=== PATIENT | male | born 1965 | race Caucasian/White ===

== ENCOUNTER 2017-01-19 13:59 | Emergency (ER) | payer MEDICARE, MEDICAID ==
[~2017-01-19] VITALS: Ht 182.9 cm; Wt 78.9 kg
[~2017-01-19 13:59] MED LIST: BACTRIM DS 8001 TAB PO; BACTROBAN2% TP; ITRACONAZOLE100 MG PO; K-DUR 2020 MEQ PO; MAG-OX 400MG T400 MG PO; MELATONIN1 MG PO; MICONAZOLE45 GM/TUB1 TP; NOMEDS XX; NORCO 325 MG-51 TAB PO; PANTOPRAZOLE SO40 MG PO; RANITIDINE300 MG PO; TEMAZEPAM15 M1 PO; TRAZADONE HYDR100 MG PO
--- NOTE | 2017-01-19 14:23 | Urgent Treatment Center Report ---
History of Present Issue Date/Time Seen by Provider 01/19/17 1416 Visit Reason Pt arrived:Walked Presenting Problem:c/o sore throat, productive cough, bilateral ear pain. states symptoms have been going on for 2 weeks. Location if Accident: Onset of symptoms date/time:/ or onset unknown for:MEDICAL HX UNKNOWN Have you (or family members/close friends) recently traveled outside the [place]? N If Yes, where/when: Have you had exposure to infectious disease within the past month? TB? Other? Specify: Patient states that he has been sick for almost 2 weeks states that the doctor told him he may have strep gave him some medication but still has not improved that it has actually got worse. States that his throat is sore and it feels like it is backing up into his ears and his nose is stopped up Source patient, family ALLERGIES Coded Allergies: codeine (01/19/17) Home Medications Reported Medications Temazepam 15 MG PO QHS #30 Trazodone Hcl (Trazodone HCl) 50 MG PO QHSP PRN SLEEP #30 History Medical History General CAD? No Angina: No [place]: No Hypertension? No Hyperlipidemia? No CHF? No COPD? No Asthma? No Anemia? No Hernia? No Thyroid Problems? No Hypothyroidism? No CVA? No Seizures? No Diabetes? No UTI? No Stones? No GB Disease: No Nephritic Syndrome? No Asplenia? No Hepatitis? Yes Cataracts? No Glaucoma? No MRSA? Yes TB? No Cancer? No More? Yes Additional hx: HISTOPLASMOSIS, sleep disorder Immunization HX DT/Tetanus Unknown Surgical Hx Previous Surgery?Y thumb surgery Social History Smoking Hx Smoker: Current Every Day Smoker Tobacco: Yes Type Cigarettes Packs/day < 1 Pack Alcohol Alcohol: No Review of Systems All Other Systems Reviewed and Negative ENT ear pain, nose congestion, throat pain, throat swelling. Respiratory cough Physical Exam Vital Signs Vital Signs Date Time Temp Pulse Resp B/P Pulse O2 O2 Flow FiO2 Ox Delivery Rate 01/19 1408 98.4 64 24 154/114 98 General Appearance normal appearance Ear, Nose, Throat tonsillar exudate, tonsillar swelling, Throat red, irritated, Left ear red scratch just inside opening, TM visiable good landmarks Respiratory Status Yes: trachea midline, chest symmetrical, non tender chest. No: respiratory distress. Cardiovascular normal exam, no peripheral edema, no gallop, no JVD Neurologic alert, normal exam, no motor/sensory deficits Medical Decision Making LABS/Meds/Orders Pt receiving controlled substance in ED? No Results/Orders Orders Procedure Date/time Status UTC STREP SCREEN 01/19 1420 Active CHEST(2 VIEWS-NOT PORTABLE) 01/19 1417 Active XRAY/CT/US XRAY/CT/US XRAY chest XR interpretation by reviewed by me Xray Results no infiltrates Departure Departure Time of Disposition 1436 Disposition DC Home or Self Care(routine) Clinical Impression Primary Impression: Upper respiratory infection Qualifiers: URI type: unspecified URI Qualified Code: J06.9 - Acute upper respiratory infection, unspecified Condition STABLE Patient Instructions DI for Cough -- Adult Additional Instructions Warm salt water gargles for throat irritation Use humidifer to moisten air Follow up family doctor Over the counter Motrin or Tylenolol for fever or pain Discharge Counseling Counseled pt/family regarding diagnosis, test results, home care, follow up needs Prescriptions Current Visit Scripts Azithromycin (Zithromycin (Z-ANJU) 250MG Tab) 250 MG PO DAILY #6 TAB TAKE TWO (2) TABLETS ON DAY 1, THEN ONE (1) TABLET DAY #2 THRU #5 Prednisone (Prednisone 20MG) 20 MG PO BID #10 TAB at 1441
[2017-01-19] MEDS ORDERED: PREDNISONE 20MG20 MG PO (14:38)
[2017-01-19] MEDS ORDERED: ZITHROMAX Z PA250 MG PO (14:38)
[2017-01-19 15:06] VITALS: BP 154/114
--- NOTE | 2017-01-19 16:18 | RADIOLOGY REPORT PS360 ---
CHEST(2 VIEWS-NOT PORTABLE) INDICATION: Productive cough COMPARISON: None FINDINGS: The lung gutierrez are well expanded and appear clear of infiltrate. The cardiomediastinal silhouette and vascularity are normal. The costophrenic angles are clear. The bony thorax is normal. IMPRESSION: Normal chest.
== END 2017-01-19 15:07 | disposition home or self-care (01) ==
LOC: UTC 13:59
DX: J06.9 Acute upper respiratory infection, unspecified (principal)

== ENCOUNTER 2017-08-20 23:49 | Emergency (ER) | payer MEDICARE, MEDICAID ==
[~2017-08-20] VITALS: Ht 182.9 cm; Wt 48.5 kg
[~2017-08-20 23:49] MED LIST changes: +PREDNISONE 20MG20 MG PO; +ZITHROMAX Z PA250 MG PO
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
[2017-08-21 00:21] LABS: LYMPH # 1.3 K/mm3 (0.7-4.5); LYMPH % 18.9 % (10-50)
[2017-08-21 00:32] LABS: HEMOGLOBIN 15.2 g/dL (14.1-18.0)
[2017-08-21 00:36] VITALS: BP 126/96
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
== END 2017-08-21 00:38 | disposition still patient (30) ==
LOC: ER 23:49
PROVIDERS: Emergency Medicine
DX: S39.81XA Other specified injuries of abdomen, initial encounter (principal); V89.2XXA Person injured in unspecified motor-vehicle accident, traffic, initial encounter; Z72.0 Tobacco use; R73.09 Other abnormal glucose; S00.411A Abrasion of right ear, initial encounter; Z88.6 Allergy status to analgesic agent

== ENCOUNTER 2017-09-16 14:45 | Emergency (ER) | payer MEDICARE, MEDICAID ==
[~2017-09-16] VITALS: Ht 182.9 cm; Wt 81.6 kg
[2017-09-16] MEDS ORDERED: GABAPENTIN 600600 MG PO (14:59)
[2017-09-16] MEDS ORDERED: OXYCODONE 5MG TA5 MG PO (15:00)
--- OUTSIDE RECORDS SUMMARY | 2017-09-16 15:08 | External Medical Summary Rpt | CCD ---
Author Author , [facility] Organization [facility] Address Unknown Phone [email or web address] Team Providers Care Joint Yarner Name Role Phone ADEANGELA FRANCISCO J, Unavailable Unavailable ADEGBOYEGA FRANCISCO J ALHAJERI, ALHAJERI Unavailable Unavailable AOUAD, AOUAD Unavailable Unavailable ARNOLD, ARNOLD Unavailable Unavailable ARNOLD, ARNOLD Unavailable Unavailable ARNOLD JUAN LUIS, ARNOLD Unavailable Unavailable JUAN LUIS ARNOLD JUAN LUIS, ARNOLD Unavailable Unavailable JUAN LUIS AUXIER, AUXIER Unavailable Unavailable AYOOB, AYOOB Unavailable Unavailable SHIPMAN, SHIPMAN Unavailable Unavailable SANABRIA NIDA, SANABRIA Unavailable Unavailable NIDA [facility] Unavailable Unavailable SERVICE, [facility]available Unavailable SERVICE, [facility] FRANK KIN IGN, Unavailable Unavailable [facility]ANK [facility] IGN CHESTNUT, CHESTNUT Unavailable Unavailable CALI, CALI Unavailable Unavailable [facility], Unavailable Unavailable [facility] Unavailable Unavailable CLINIC, PLL, [facility] SAM, SAM Unavailable Unavailable COOK, COOK Unavailable Unavailable FRDEA, FREDA Unavailable Unavailable FREDA ADR, FREDA Unavailable Unavailable ADR FORTINO DECALVO Unavailable Unavailable MAR, FORTINO DECALVO MAR DELL CAR, DELL CAR Unavailable Unavailable [facility]available [facility]available [facility] DISANTIS GLYNN, Unavailable Unavailable DISANTIS GLYNN RAYRAY, RAYRAY Unavailable Unavailable ECKERLINE JR GERALDINE, Unavailable Unavailable ECKERLINE JR GERALDINE FAGBEMI, FAGBEMI Unavailable Unavailable JACKELIN SHE, JACKELIN Unavailable Unavailable SHE [facility], Unavailable Unavailable [facility] Unavailable Unavailable HOSPITAL, [facility] GHALI, GHALI Unavailable Unavailable DUTTA JUAN LUIS, DUTTA JUAN LUIS Unavailable Unavailable [facility] PHI, TEMPLETON Unavailable Unavailable PHI HAGENSCHNEIDER JANEEN, Unavailable Unavailable HAGENSCHCARLY JANEEN [facility], [facility] CATALINO, CATALINO Unavailable Unavailable LISETTE MASKEY, LISETTE Unavailable Unavailable MASKEY PILLO TAU, PILLO Unavailable Unavailable TAU ROXANNE III GERALDINE, Unavailable Unavailable ROXANNE III GERALDINE [facility] Unavailable Unavailable [facility], [facility] LINUS ROBBY, LINUS Unavailable Unavailable ROBBY ANJEL SUBHASH, ANJEL SUBHASH Unavailable Unavailable JULIO CHI, [facility] Unavailable [facility] CITLALY, SHANIADY Unavailable Unavailable [facility] Un[facility] FELICIANO ART, FELICIANO Unavailable Unavailable ART SARAY VIOLETTE, SARAY Unavailable Unavailable VIOLETTE SARAY VIOLETTE, SARAY Unavailable Unavailable VIOLETTE SARAY, JOHN, Unavailable Unavailable SARAY, JOHN LUKE CON, LUKE CON Unavailable Unavailable [facility] Unavailable Unavailable [facility], [facility] CHAZ WARE Unavailable Unavailable [facility] HERNANDEZ-LÓPEZ GALINDO, Unavailable Unavailable HERNANDEZ-LÓPEZ GALINDO MUSIC SORAIDA, MUSIC SORAIDA Unavailable Unavailable FERNANDEZ, FERNANDEZ Unavailable Unavailable [facility], Unavailable Unavailable [facility] DELVIS, DELVIS Unavailable Unavailable EBONY VIOLETTE, EBONY VIOLETTE Unavailable Unavailable [facility], Unavailable Unavailable [facility] Unavailable Unavailable EMS, [facility] Unavailable Unavailable EMS, [facility] RADAMES GALINDO, RADAMES Unavailable Unavailable GALINDO [facility], Unavailable Unavailable [facility] Unavailable Unavailable [facility]AT, [facility] Unavailable Unavailable LLC, [facility] Unavailable Unavailable LLC, [facility] RASLAU FLA, RASLAU Unavailable Unavailable FLA MEJÍA LG, Unavailable Unavailable MEJÍA LG OBEY ELAINA, OBEY Unavailable Unavailable ELAINA ROMOND PAOLA, ROMOND Unavailable Unavailable PAOLA [facility]ICAL, ROSS Unavailable Unavailable [facility]ICAL ROSS SURGICAL, ROSS Unavailable Unavailable SURG[facility] SHANTELL IRA, SHANTELL IRA Unavailable Unavailable SCALF, SCALF Unavailable Unavailable SCHLEENBAKER RAN, Unavailable Unavailable SCHLEENBAKER RAN GOMEZ HEM, GOMEZ HEM Unavailable Unavailable SHASHY, SHASHY Unavailable Un[facility] Unavailable Unavailable [facility]ICIAN SERVI, [facility] Unavailable Unavailable KETAN, [facility] DEJESUS GALINDO, DEJESUS GALINDO Unavailable Unavailable МАРИНА JEANNINE, Unavailable Unavailable МАРИНА JEANNINE SWINEY, SWINEY Unavailable Unavailable SONALI MARY, SONALI Unavailable Unavailable MARY SORIA, SORIA Unavailable Unavailable DWYER, DWYER Unavailable Unavailable LES JAM, LES JAM Unavailable Unavailable [facility] Un[facility], [facility], Unavailable Unavailable [facility] WELLS, WELLS Unavailable Unavailable WELLS, WELLS Unavailable Unavailable [facility], WEST Unavailable Unavailable [facility] MARY BETH, MARY BETH Unavailable Unavailable MARY BETH NIDA, MARY BETH Unavailable Unavailable NIDA ZAGUROVSKAYA MAR, Unavailable Unavailable ZAGUROVSKAYA MAR RIVERA, RIVERA Unavailable Unavailable Purpose Continuity of Care Document - 08-02-2008 through 2016 Problems Code Diagnosis DOS Provider Status J189 PNEUMONIA 08-04-2017 [facility] UNSPECIFIED SURGICAL ORGANISM M545 LOW BACK 06-11-2017 [facility] Z6825 BODY MASS 06-11-2017 [facility] INDEX BMI FAMILY 25.0-25.9 CLINIC, PLL ADULT B1920 UNS VIRAL 05-21-2017 [facility] WITHOUT INC HEPATIC COMA B399 HISTOPLASMO 05-21-2017 [place] [facility] UNSPECIFIED INC I10 ESSENTIAL 05-20-2017 [facility] J449 CHRONIC 05-20-2017 [facility] DISEASE UNS K219 GASTRO-ESOP 05-20-2017 [facility] REFLUX [facility] WITHOUT ESOPHAGITIS R070 PAIN IN 05-20-2017 [facility] N EMERGENCY PHYS R1310 DYSPHAGIA 05-20-2017 [facility] Z880 ALLERGY 05-20-2017 [facility] Z885 ALLERGY 05-20-2017 [facility] AGENT STATUS R498 OTHER VOICE 05-13-2017 [facility] RESONANCE CLINIC, PLL DISORDERS Z6820 BODY MASS 05-13-2017 [facility] IN[facility] BMI FAMILY 20.0-20.9 CLINIC, PLL ADULT A419 SEPSIS 04-25-2017 [facility] ORGANISM [facility] B182 CHRONIC 04-25-2017 [facility] V[facility] HEPATITIS C [facility] B393 DISSEMINATE 04-25-2017 [facility] D [facility] HISTOPLASMO [facility] SIS CAPSULATI E46 UNSPECIFIED 04-25-2017 [facility] PROTEIN-NANCI [facility] ORIE MALNUTRITIO N J387 OTHER 04-25-2017 [facility] DISEASES OF SERV LARYNX FOUNDATION Z4659 ENCOUNTER 04-22-2017 [facility] ADJUST OTH [facility] GI APPLIANCE & DEVICE Z934 OTH 04-22-2017 [facility] ARTFICIAL SERV OPENINGS [facility] GASTROINTES T TRACT STATUS G49882 DECREASED 04-21-2017 [facility] WHITE BLOOD SERV CELL COUNT [facility]OUNDATION UNSPECIFIED E440 MODERATE 04-21-2017 [facility] PROTEIN-NANCI SERV ORIE FOUNDATION MALNUTRITIO N E876 HYPOKALEMIA 04-21-2017 [facility] I358 OTHER 04-21-2017 [facility] NONRHEUMATI SERV C AORTIC FOUNDATION VALVE DISORDERS R1313 DYSPHAGIA 04-21-2017 [facility] PHARYNGEAL [facility] PHASE [facility] R499 UNSPECIFIED 04-21-2017 [facility] VOICE [facility] RESONANCE [facility] DISORDER R509 FEVER 04-21-2017 [facility] X02461W FOOD IN 04-21-2017 [facility] PHARYNX [facility] CAUSING [facility] ASPHYXIATIO N INIT ENC Z720 TOBACCO USE 04-21-2017 [facility] G039 MENINGITIS 04-18-2017 [facility]PEC[facility] M792 NEURALGIA 04-16-2017 [facility] NEURITIS [facility] UNSPECIFIED E860 DEHYDRATION 04-11-2017 [facility] J384 EDEMA OF 04-11-2017 [facility] LARYNX SERV [facility] R0602 SHORTNESS 04-11-2017 [facility] OF BREATH SERV [facility] R1319 OTHER 04-11-2017 [facility] DYSPHAGIA SERV [facility] R918 OTHER 04-11-2017 [facility] NONSPECIFIC SERV ABNORMAL [facility] FINDING OF LUNG FIELD Z8619 PERSONAL 04-11-2017 [facility] HISTORY [facility]TH SERV INFECTIOUS FOUNDATION & PARASITIC DZ J069 ACUTE UPPER 04-10-2017 [facility] RESPIRATORY CLINIC, PLL INFECTION UNSPECIFIED D3709 NEOPLASM 04-08-2017 [facility] BHV OTH PRACTIC SPEC SITES ORAL CAV D380 NEOPLASM OF 04-08-2017 [facility] BEHAVIOR OF PRACTIC LARYNX H9201 OTALGIA 04-08-2017 [place] RIGHT EAR [facility] J342 DEVIATED 04-08-2017 [facility] M1990 UNSPECIFIED 04-08-2017 [facility] TIS UNSPECIFIED SITE R12 HEARTBURN 04-08-2017 [facility] J0431 SUPRAGLOTTI 04-06-2017 [facility] TIS N EMERGENCY UNSPECIFIED PHYS WITH OBSTRUCTION R0600 DYSPNEA 04-06-2017 [facility] M542 CERVICALGIA 04-03-2017 [facility] R000 TACHYCARDIA 04-03-2017 [facility] FAMILY UNSPECIFIED CLINIC, PLL R030 ELEVATED 04-03-2017 [facility] BLOOD-PRESS FAMILY URE READING CLINIC, PLL WITHOUT DX HTN R05 COUGH 04-03-2017 [facility] J383 OTHER 03-04-2017 [facility] DISEASES OF FAMILY VOCAL CLINIC, PLL CORDS I444 LEFT 02-26-2017 [facility] FASCICULAR [facility] BLOCK R9431 ABNORMAL 02-26-2017 [facility] ELECTROCARD SERV IOGRAM [facility]ATION R490 DYSPHONIA 02-21-2017 [facility] B379 CANDIDIASIS 02-04-2017 [facility] FAMILY UNSPECIFIED CLINIC, PLL R221 LOCALIZED 02-04-2017 [facility] SWELLING FAMILY MASS AND CLINIC, PLL LUMP NECK B370 CANDIDAL 01-31-2017 [facility] STOMATITIS N EMERGENCY PHYS I959 HYPOTENSION 01-31-2017 [facility] N EMERGENCY UNSPECIFIED PHYS J9811 ATELECTASIS 01-27-2017 [facility] J040 ACUTE 01-06-2017 [facility] LARYNGITIS M150 PRIMARY 01-06-2017 [facility] GENERALIZED OSTEOARTHRI TIS R531 WEAKNESS 01-06-2017 [facility] L2089 OTHER 12-10-2016 [facility] ATOPIC FAMILY DERMATITIS CLINIC, PLL H6500 ACUTE 09-11-2016 [facility] SEROUS FAMILY OTITIS CLINIC, PLL MEDIA UNSPECIFIED EAR B1710 ACUTE 08-28-2016 [facility] HEPATITIS C FAMILY WITHOUT CLINIC, PLL HEPATIC COMA R7301 IMPAIRED 08-28-2016 [facility] GLUCOSE CLINIC, PLL R749 ABNORMAL 08-22-2016 [facility] [employer] [facility] LEVEL UNSPECIFIED R945 ABNORMAL 08-22-2016 [facility] FUNCTION STUDIES Z0000 ENCOUNTER 08-22-2016 [facility] GEN ADULT FAMILY MED EXAM CLINIC, PLL W/O ABNORMAL FIND G4700 INSOMNIA 08-08-2016 [facility] JUAN LUIS UNSPECIFIED G894 CHRONIC 08-08-2016 [facility] JUAN LUIS PAIN SYNDROME H6992 UNSPECIFIED 06-13-2016 [facility] EUSTACHIAN N EMERGENCY TUBE SERVI DISORDER LEFT EAR H9202 OTALGIA 06-13-2016 [facility] LEFT EAR N EMERGENCY SERVI R51 HEADACHE 05-11-2016 [facility] R569 UNSPECIFIED 05-11-2016 [facility] P06837 PAIN IN 10-13-2015 [place] [facility] M549 DORSALGIA 10-13-2015 [place] [facility] W54142 PAIN IN 10-13-2015 [place] [facility] I96 GANGRENE 10-02-2015 [facility] NOT SERV ELSEWHERE FOUNDATION CLASSIFIED R069 UNSPECIFIED 10-02-2015 [facility] ABNORMALITI [facility] ES OF BREATHING M72281Y LACERATION 10-02-2015 [facility] W/O FB RT SERV THUMB W/O FOUNDATION DAMAGE NAIL INIT T07391 ACQUIRED 10-02-2015 [facility] ABSENCE OF SERV LEFT THUMB FOUNDATION M19785 CELLULITIS 10-01-2015 [facility] OF LEFT SERV UPPER LIMB FOUNDATION L0390 CELLULITIS 10-01-2015 [facility]PEC[facility] SERVICE A17581 PAIN IN 10-01-2015 [place] [facility] Q06484H OPEN BITE 10-01-2015 [facility] MEDICAL THUMB W/O IMAGING ASS DAMAGE NAIL INITIAL 98435 ESOPHAGEAL 08-24-2015 [facility] 17034 INSOMNIA 08-24-2015 [facility] 7871 HEARTBURN 08-24-2015 [facility] 92754 UNSPECIFIED 08-17-2015 [facility] VIRAL [facility] HEPATITIS C [facility]OUNDATION W/O HEPATIC COMA 84086 HISTOPLASMA 08-17-2015 [facility] CAPSULATUM SERV WITHOUT [facility]OUNDATION MENTION MANIFEST 7099 UNSPECIFIED 08-17-2015 [facility] DISORDER [facility] OF [facility]ATION SKIN&SUBCUT ANEOUS TISSUE 87980 DYSPHAGIA 08-17-2015 [facility] UNSPECIF[facility] SERV [facility] 7904 NONSPEC 08-17-2015 [facility] ELEV[facility] OF LEVELS FOUNDATION OF TRANSAMINAS E/LDH 46274 UNSPEC 08-14-2015 [facility] HISTOPLASMO SERV SIS WITHOUT FOUNDATION MENTION MANIFEST 2639 UNSPECIFIED 08-14-2015 [facility] PROTEIN-NANCI [facility]OUNDATION ORIE MALNUTRITIO N 2768 HYPOPOTASSE 08-14-2015 [facility] AILYN [facility] 33598 ENCEPHALOPA 08-14-2015 [facility] THY, SERV UNSPECIFIED FOUNDATION 74944 OTHER 08-12-2015 [facility] ALTERATION [place] [address] DYSPHAGIA 08-12-2015 [facility] OROPHARYNGE N PHYSICIAN AL PHASE SERVI 4371 OTH 08-11-2015 [facility] GENERALIZED SERV ISCHEMIC FOUNDATION CEREBROVASC ULAR DISEASE V1209 PERSONAL HX 08-11-2015 [facility] INFECTIOUS& FOUNDATION PARASITIC DISEASE 84115 OTHER 08-10-2015 [facility] PNEUMOTHORA SERV X FOUNDATION V5882 ENCOUNTER 08-10-2015 [facility] FITTING&ADJ SERV [facility] NON-VASCULA R CATHETER NEC 5119 UNSPECIFIED 08-08-2015 [facility] PLEURAL [facility] EFFUSION [facility] 9331 FOREIGN 08-08-2015 [facility] B[facility] IN SERV LARYNX FOUNDATION E915 FOREIGN 08-08-2015 [facility] ACCIDENTALL [facility] Y ENTERING OTHER ORIFICE 27225 OTHER 08-07-2015 [facility] ENCEPHALOPA SERV THY FOUNDATION 89261 NONSPECIFIC 08-07-2015 [facility] ABNORMAL SERV ELECTROCARD FOUNDATION IOGRAM 78647 SOLITARY 08-02-2015 [facility] PULMONARY SERV NODULE FOUNDATION 486 PNEUMONIA, 08-01-2015 [facility] ORGANISM [facility] UNSPECIFIED FOUNDATION 72711 UNSPECIFIED 08-01-2015 [facility]OCK [facility] 31293 MECH COMP 07-28-2015 [facility] DUE OTH SERV IMPLANT&INT FOUNDATION ERNAL DEVICE NEC 48304 PRIMARY 07-27-2015 [facility] SPONTANEOUS SERV [facility] PNEUMOTHORA X 1124 CANDIDIASIS 07-26-2015 [facility] OF LUNG SERV FOUNDATION 2875 UNSPECIFIED 07-26-2015 [facility] THROMBOCYTO F[facility] PENIA 45899 LEUKOCYTOPE 07-26-2015 [facility] MILA SERV UNSPECIFIED FOUNDATION 95709 OTHER 07-26-2015 [facility] SPECIFIED SERV CARDIAC FOUNDATION DYSRHYTHMIA S 34397 CALCU 07-26-2015 [facility] GALLBLADD SERV W/O MENTION FOUNDATION CHOLECYST/O BST 46389 SEPSIS 07-26-2015 [facility] V5881 FITTING AND 07-26-2015 [facility] ADJUST[facility] SERV OF FOUNDATION VASCULAR CATHETER 0389 UNSPECIFIED 07-25-2015 [facility] 1179 OTHER AND 07-25-2015 [facility] MYCOSES 10893 OTHER 07-25-2015 [facility] A 53073 ACUTE 07-25-2015 [facility] FAILURE 56730 OTHER 07-25-2015 [facility] DISEASES OF SERV LUNG NOT FOUNDATION ELSEWHERE CLASSIFIED 79060 FEVER 07-25-2015 [facility] UNSPECIFIED SERV FOUNDATION 06447 LOSS OF 07-25-2015 [facility] WEIGHT [facility] 68614 SEPTIC 07-25-2015 [facility] 7856 ENLARGEMENT 07-25-2015 [facility] OF LYMPH SERV NODES FOUNDATION 7862 COUGH 07-25-2015 [facility] 21827 OTHER 07-25-2015 [facility] NONSPECIFIC SERV ABNORMAL FOUNDATION FINDING OF LUNG FIELD 23390 SEVERE 07-25-2015 [facility] SEPSIS SERV [facility] 6961 OTHER 07-12-2015 [facility] PSORIASIS N PHYSICIAN AND SIMILAR SERVI DISORDERS 46053 CHRONIC 07-10-2015 [facility] WITHOUT MENTION HEPATIC COMA 01267 SHORTNESS 07-10-2015 [facility] 33297 WHEEZING 07-10-2015 [facility] 6929 CONTACT 06-08-2015 D[facility] DERMATITIS& OTHER CONSULTANTS ECZEMA DUE PSC UNSPEC CAUSE 6989 UNSPECIFIED 06-08-2015 [facility] DISORDER INC 7905 OTHER 06-08-2015 [facility] NONSPECIFIC [facility] ABNORMAL INC SERUM ENZYME LEVELS 6823 CELLULITIS 05-30-2015 [facility] AND ABSCESS [facility] HOS[facility] OF UPPER INC ARM AND FOREARM 9194 OTH MX&UNS 05-30-2015 DERMAT[facility] SITE INSECT BITE CONSULTANTS NONVENOMOUS PSC W/O INF V5869 LONG-TERM 05-30-2015 [facility] (CURRENT) [facility] USE OF INC OTHER MEDICATIONS 41756 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 [facility] VIOLETTE CHRONIC BRONCHITIS WITHOUT EXACERBAT 7821 RASH AND 03-08-2014 [facility] VIOLETTE OTHER NONSPECIFIC SKIN ERUPTION 55488 OTHER CHEST 08-01-2011 [facility] VIO[facility] PAIN 9925 HEAT 08-01-2011 [facility] V[facility] EXHAUSTION, UNSPECIFIED E8499 UNSPECIFIED 08-01-[address] OF OCCURRENCE E9000 ACCIDENT 08-01-2011 [facility] VIOLETT[facility] DUE EXCESSIVE HEAT WEATHER CONDITIONS 12377 DEHYDRATION 07-31-2011 [facility] HOSPITAL 65196 PEPTC ULCR 07-31-2011 [facility] UNS HOSPITAL ACUT/CHRN W/O HEMOR PERF/OBST 7820 DISTURBANCE 07-31-2011 [facility] SENSATION 80444 CHEST PAIN 07-31-2011 [facility] 32313 ABDOMINAL 07-31-2011 [facility] PAIN, HOSPITAL EPIGASTRIC 3688 OTHER 08-02-2008 [facility] SPECIFIED HOSPITAL VISUAL DISTURBANCE S 5258 OTHER SPEC 08-02-2008 [facility] DISORDERS HOSPITAL TEETH&SUPPO RTING STRUCTURES 5259 UNSPECIFIED 08-02-2008 [facility] DISORDER HOSPITAL TEETH&SUPPO RTING STRUCTURES 8830 OPEN WOUND 08-02-2008 [facility] WITHOUT MENTION COMPLICATIO N 920 CONTUSION 08-02-2008 [facility] SCALP AND NECK EXCEPT EYE 9221 CONTUSION 08-02-2008 [facility] WALL Allergies, Adverse Reactions, Alerts Clinical Alert Notifications Alert Member has >/= 3 hosp admit & >/= 1 ED visit in 365 days Results Labs Lab Lab Date Result Refere Interp Status Commen Order Detail nces retati t Range on Lipase SerPl-cCnc (08-21-2017 01:51) Lipase 37 U/L 19-63 complet SerPl-c 017 ed Cnc 01:51 Lactate Bld-sCnc (08-21-2017 01:51) Lactate 2.1 complet 017 mmol/L ed Bld-sCn 01:51 c Phosphate SerPl-mCnc (04-23-2017 05:40) Phospha 04-23- 3.2 2.5-4.5 complet te 017 mg/dL ed SerPl-m 05:40 Cnc Phosphate SerPl-mCnc (04-22-2017 12:11) Phospha 04-22-2 2.6 2.5-4.5 complet te 017 mg/dL ed SerPl-m 12:11 Cnc Magnesium SerPl-mCnc (04-22-2017 12:11) Magnesi 04-22-2 2.0 1.9-2.4 complet um 017 mg/dL ed SerPl-m 12:11 Cnc Phosphate SerPl-mCnc (04-21-2017 03:52) Phospha 04-21-2 3.8 2.5-4.5 complet te 017 mg/dL ed SerPl-m 03:52 Cnc Magnesium SerPl-mCnc (04-21-2017 03:52) Magnesi 04-21-2 1.6 1.9-2.4 complet um 017 mg/dL ed SerPl-m 03:52 Cnc Phosphate SerPl-mCnc (04-20-2017 06:18) Phospha 04-20-2 2.9 2.5-4.5 complet te 017 mg/dL ed SerPl-m 06:18 Cnc Magnesium SerPl-mCnc (04-20-2017 06:18) Magnesi 04-20-2 2.0 1.9-2.4 complet um 017 mg/dL ed SerPl-m 06:18 Cnc Bacteria CSF Cult (04-18-2017 09:59) Bacteri [id number] complet a XXX 017 06 No ed Anaerob 09:59 growth e+Aerob (qualif e Cult ier value) SCT NG4 NO GROWTH DAY 4. L CC XXX NOTAP complet VC-aCnc 017 NOT ed 09:59 APPLICA BLE L Fungus Tiss Cult (04-18-2017 09:59) Bacteri 04-18- [id number] complet a XXX 017 03 ed Anaerob 09:59 sample: e+Aerob fungus e Cult not isolate d (findin g) SCT NF21 NO FUNGAL GROWTH AT 3 WEEKS L Bacteria XXX Anaerobe+Aerobe Cult (04-18-2017 04:18) Bacteri [id number] complet a XXX 017 06 No ed Anaerob 04:18 growth e+Aerob (qualif e Cult ier value) SCT NGB5 NO GROWTH DAY 4. L Vancomycin Trough SerPl-mCnc (04-15-2017 12:30) Vancomy 13.0 10-20 complet makeda 017 ug/mL ed Trough 12:30 SerPl-m Cnc Vancomycin Trough SerPl-mCnc (04-13-2017 13:20) Vancomy 8.4 10-20 complet makeda 017 ug/mL ed Trough 13:20 SerPl-m Cnc Phosphate SerPl-mCnc (04-12-2017 04:02) Phospha 3.6 2.5-4.5 complet te 017 mg/dL ed SerPl-m 04:02 Cnc Magnesium SerPl-mCnc (04-12-2017 04:02) Magnesi 2.1 1.9-2.4 complet um 017 mg/dL ed SerPl-m 04:02 Cnc HCV Ab SerPl Ql EIA (04-11-2017 18:46) HCV Ab POS complet SerPl 017 POSITIV ed Ql EIA 18:46 E L Bacteria XXX Anaerobe+Aerobe Cult (04-11-2017 15:16) Bacteri [id number] complet a XXX 017 06 No ed Anaerob 15:16 growth e+Aerob (qualif e Cult ier value) SCT NGB4 NO GROWTH DAY 4. L Phosphate SerPl-mCnc (04-11-2017 12:25) Phospha 3.5 2.5-4.5 complet te 017 mg/dL ed SerPl-m 12:25 Cnc Magnesium SerPl-mCnc (04-11-2017 12:25) Magnesi 1.9 1.9-2.4 complet um 017 mg/dL ed SerPl-m 12:25 Cnc Lactate Bld-sCnc (04-11-2017 12:25) Lactate 1.0 complet 017 mmol/L ed Bld-sCn 12:25 c Procedures Procedure DOS Code Location Performer Comment NEBULIZER E0570 MAYLIN CARLISLE WITH 7 SURGICAL SURGICAL COMPRESSO R NEBULIZER E0570 MAYLIN CARLISLE WITH 7 SURGICAL SURGICAL COMPRESSO R DRUG TEST 12488 COMM[facility]ITY AUXIER PRSMV 7 FAMILY INSTRMNT CLINIC, CHEMISTRY PLL ANALYZERS NEBULIZER E0570 MAYLIN CARLISLE WITH 7 SURGICAL SURGICAL COMPRESSO R COMPLEMEN 33779 VIV NAM T 7 [facility] FIXATION INC INC TESTS EACH ANTIGEN ANTIBODY 92813 VIV NAM HISTOPLAS 7 [facility] MA INC INC CULTURE 81213 VIV NAM FNGI 7 [facility] MOLD/YEAS INC INC T PRSMPTV OTH XCPT BLOOD NFCT AGNT 57974 VIV NAM GENOTYP 7 [facility] NUCLEIC INC INC ACID HEPATITIS C VIRUS COLLECTIO 23183 VIV NAM N VENOUS 7 [facility] BLOOD INC INC VENIPUNCT URE COMPREHEN 05562 VIV NAM SIVE 7 [facility] METABOLIC INC INC PANEL BLOOD 08953 VIV NAM COUNT 7 [facility] COMPLETE INC INC AUTO&AUTO DIFRNTL WBC RADIOLOGI 85380 MELVIN Paredes 7 EXAMINATI RADIOLOGY ON NECK ASSOCIAT SOFT TISSUE SWALLOWIN 29133 [place] G FUNCJ 7 HEALTHCAR HEALTHCAR W/CINERAD E E IOGRAPY/V [facility] IDRADIOG MOTION 05072 [place] FLUOR 7 HEALTHCAR HEALTHCAR EVAL E E SWLNG [facility] FUNCJ C/V REC NEBULIZER E0570 [place] CARLISLE WITH 7 SURGICAL SURGICAL COMPRESSO R HOSPITAL [address] [place] PARASRAM DISCHARGE 7 MEDICAL A DAY SERV MANAGEMEN FOUNDATIO T 30 N MIN/< RADEX 41517 [place] FERNANDEZ ABDOMEN 1 7 MEDICAL SERV ANTEROPOS FOUNDATIO TERIOR N VIEW SBSQ 87409 [facility] 7 MEDICAL A CARE/DAY SERV 25 FOUNDATIO MINUTES N SBSQ 75936 [facility] 7 MEDICAL A CARE/DAY SERV 25 FOUNDATIO MINUTES N SWALLOWIN 18696 [place] AYOOB G FUNCJ 7 MEDICAL W/CINERAD SERV IOGRAPY/V FOUNDATIO IDRADIOG N ECHO 91776 [place] SARAHI TTHRC R-T 7 MEDICAL 2D SERV W/WOM-MOD FOUNDATIO E COMPL N SPEC&COLR D SBSQ 55491 [facility] 7 MEDICAL CARE/DAY SERV 25 FOUNDATIO MINUTES N FLUOR 92973 [place] ALHAJERI NEEDLE/CA 7 MEDICAL TH SERV SPINE/PAR FOUNDATIO ASPINAL N DX/THER ADDON CYTP 24891 [facility] 7 MEDICAL PIECORO TION SERV SMEARS & FOUNDATIO INTERPRET N ATION SPECIAL [address] [place] [address] MEDICAL PIECORO GROUP 1 SERV MICROORGA FOUNDATIO NISMS I&R N SPINAL 70075 [place] ALHAJER[place] PUNCTURE 7 MEDICAL LUMBAR SERV DIAGNOSTI FOUNDATIO C N SBSQ 38874 [facility] 7 MEDICAL CARE/DAY SERV 25 FOUNDATIO MINUTES N SBSQ 03700 [facility] 7 MEDICAL CARE/DAY SERV 25 FOUNDATIO MINUTES N SBSQ 23212 [facility] 7 MEDICAL A CARE/DAY SERV 35 FOUNDATIO MINUTES N SBSQ 58341 [facility] 7 MEDICAL A CARE/DAY SERV 35 FOUNDATIO MINUTES N EGD 58777 [place] [facility] 7 MEDICAL BIOPSY SERV SINGLE/[place] [address] [place] DWYER SURG 7 MEDICAL PATHOLOGY SERV FOUNDATIO GROSS&NIDA N ROSCOPIC EXAM SBSQ 84824 [facility] 7 MEDICAL CARE/DAY SERV 25 FOUNDATIO MINUTES N SBSQ 86112 [facility] 7 MEDICAL CARE/DAY SERV 25 FOUNDATIO MINUTES N INITIAL 68939 [facility] 7 MEDICAL CARE/DAY SERV 50 FOUNDATIO MINUTES N INITIAL 61034 [facility] 7 MEDICAL MASKEY CARE/DAY SERV 50 FOUNDATIO MINUTES N RADEX 92000 [place] FREDA ABDOMEN 1 7 MEDICAL SERV ANTEROPOS FOUNDATIO TERIOR N VIEW RADIOLOGI 75611 [place] MARY BETH C EXAM 7 MEDICAL CHEST 2 SERV VIEWS FOUNDATIO FRONTAL&L N ATERAL INITIAL 60436 [facility] 7 MEDICAL CARE/DAY SERV 30 FOUNDATIO MINUTES N [place]NGOSC [address] W/BIOPSY( IES) LARYNGOSC 84959 MEENA VARGAS OPY 7 W W/BIOPSY PHYSICIAN MICROSCOP PRACTIC E/TELESCO PE SPECIAL 79877 [facility] STAIN [address] [place] [address] [facility] [place] NISMS I&[place] [address] [facility] SURG [address] [place] [address] HOSPITAL GROSS&NIDA ROSCOPIC EXAM EXC 85753 [facility]IARAD[facility]IAN SAM LESION 7 W PALATE PHYSICIAN UVULA W/O PRACTIC CLOSURE CT SOFT 48146 [facility] TISSUE 7 NECK RADIOLOGY RADIOLOGY W/CONTRAS ASSOCIAT ASSOCIAT T MATERIAL RADIOLOGI 22859 [facility] [place]IVER[place] C EXAM 7 RADIOLOGY CHEST 2 VIEWS FRONTAL&L ATERAL RADIOLOGI 22225 [facility] [place] 7 RADIOLOGY EXAMINATI ON NECK SOFT TISSUE NEBULIZER E0570 MAYLIN CARLISLE WITH 7 SURGICAL SURGICAL COMPRESSO R ECG 28461 [facility] CATALINO ROUTINE 7 MEDICAL ECG SERV W/LEAST FOUNDATIO 12 LDS N I&R ONLY CT SOFT 86443 [place] DELVIS TISSUE 7 MEDICAL NECK SERV W/CONTRAS FOUNDATIO T N MATERIAL BEHAVIORA 26102 [place] L & 7 HEALTHCAR HEALTHCAR QUALIT E E ANALYSIS [facility] VOICE AND RESONANCE LARYNGOSC 54727 [facility] OPY 7 HEALTHCAR HEALTHCAR FLEXIBLE E E DIAGNOSTI [facility] G0463 [facility] OUTPATIEN 7 HEALTHCAR HEALTHCAR T CLIN E E VISIT [facility] HOSPITALS ASSESS & MGMT PT LARYNGOSC 51720 EAR, NOSE SHASHY OPY 7 AND FLEXIBLE THROAT DIAGNOSTI SPECIAL C CREATININ 19036 [facility] E BLOOD 7 [facility] KETAN COLLECTIO 69912 [facility] N VENOUS 7 [facility] VENIPUNCT URE RADIOLOGI 68708 [facility] [place] SCALF C EXAM 7 RADIOLOGY CHEST 2 VIEWS FRONTAL&L ATERAL RADIOLOGI 12575 VIV NAM C EXAM 7 MEM HOS[facility] MEM HOSP CHEST 2 INC INC VIEWS FRONTAL&L ATERAL IAADIADOO 93056 VIV NAM 7 MEM HOSP MEM HOSP STREPTOCO INC INC [facility] G0463 VIV NAM OUTPATIEN 7 MEM HOSP MEM HOSP T CLIN INC INC VISIT ASSESS & MGMT PT INJECTION J3420 JOSEMANUEL ABERNATHY VIT B-12 7 CYANOCOBA BALDO TO 1000 MCG MOST 3044F [facility] RECENT 6 FAMILY FAMILY HEMOGLOBI CLINIC, CLINIC, N A1C PLL PLL LEVEL < 7.0% IADNA 08886 [facility] HEPATITIS 6 DIAGNOSTI DIAGNOSTI C QUANT CS [facility] & REVERSE TRANSCRIP TION ACUTE 44103 [facility] HEPATITIS 6 DIAGNOSTI DIAGNOSTI PANEL CS CS INCORPORA INCORPORA T T ANNUAL G0444 [facility] DEPRESSIO 6 FAMILY N CLINIC, SCREENING PLL 15 MINUTES COLLECTIO 03635 [facility] N VENOUS 6 DIAGNOSTI DIAGNOSTI BLOOD CS CS VENIPUNCT INCORPORA INCORPORA URE T T ANNUAL G0442 [facility] ALCOHOL 6 FAMILY MISUSE CLINIC, SCREENING PLL 15 MINUTES ANNUAL G0439 [facility] WELLNESS 6 FAMILY VST; CLINIC, PERSONALI PLL ZED PPS SUBSQT VST ANNUAL G0446 [facility] FCE--FCE 6 FAMILY INTENSV CLINIC, BEHV TX PLL CV DZ IND 15 MIN HEMOGLOBI 73900 [facility] N 6 DIAGNOSTI DIAGNOSTI GLYCOSYLA CS CS ANNALISE A1C INCORPORA INCORPORA T T ELIG CLIN G8427 [facility] ATTSTS 6 FAMILY FAMILY DOC M REC CLINIC, CLINIC, OBTD PLL PLL UPD/REV PT MEDS SMOKE TOB G0436 [facility] CESSATION CLINIC, CNSL PLL PT; INTRMED 3-10 MIN FACE--FAC G0447 [facility] E 6 FAMILY BEHAVIORA CLINIC, L PLL COUNSELIN G OBESITY 15 MIN GROUND A0425 [facility] MILEAGE 6 [facility] STAT[facility] EMS EMS MILE AMB A0427 [facility] SERVICE [address] [place] [address] EMERGENCY EMS [place] [address] [facility] HORACIO OLIVEIRA HEAD/BRAI 6 RADIOLOGY III GERALDINE N W/O CONTRAST MATERIAL COMPREHEN 06816 VIV NAM SIVE 5 MEM HOS[facility]OS[facility] METABOLIC INC INC PANEL COLLECTIO 49146 VIV NAM N VENOUS 5 [facility] HOS[facility]OS[facility] BLOOD INC INC VENIPUNCT URE BLOOD 82111 VIV NAM COUNT 5 MEM H[facility]OS[facility] COMPLETE INC INC AUTO&AUTO DIFRNTL WBC FEDERALLY G0467 PATRICIA CO PATRICIA CO 5 [facility] CENTER VISIT ESTAB PT COLLECTIO 48537 VIV NAM N VENOUS 5 MEM HOS[facility] HOSP BLOOD INC INC VENIPUNCT URE COMPREHEN 90397 VIV NAM SIVE 5 MEM HOS[facility] MEM HOSP METABOLIC INC INC PANEL BLOOD 25017 VIV NAM COUNT 5 MEM HOS[facility]OS[facility] COMPLETE INC INC AUTO&AUTO DIFRNTL WBC INITIAL 73875 [facility] 5 MEDICAL ELAINA CARE/DAY SERV 50 FOUNDATIO MINUTES N ANES 01952 HORACIO BENÍTEZ INTEG 5 MEDICAL SHE EXTREMITI SERV ES ANT FOUNDATIO TRUNK & N PERINEUM NOS DRAINAGE 81712 [facility] 5 MEDICAL ELAINA ABSCESS SERV COMPLICAT FOUNDATIO ED N CULTURE 06410 VIV NAM BACTERIAL 5 MEM HOS[facility]OS[facility] BLOOD INC [place] A[place] W/[place] [address] VIV VIV INFUSION 5 [facility] THERAPY/P INC INC ROPHYLAXI S /DX 1ST TO 1 HR THERAPEUT 13200 VIV VIV IC 5 [facility] INJECTION INC INC IV PUSH EACH NEW DRUG AMBULANCE A0428 ALESSANDRO FRANCOIS SERVICE 5 AMBULANCE AMBULANCE BLS SERVICE [place] [address] VIV NEW[place] INFUSION 5 MEM HOS[facility] THER INC INC PROPH ADDL SEQUENTIA L TO 1 HR COMPREHEN 42672 VIV NAM SIVE 5 MEM HOS[facility] MEM [facility]OSP METABOLIC INC INC PANEL INJECTION J2405 VIV NAM 5 MEM HOS[facility]OS[facility] ONDANSETR INC INC ON HCL PER 1 MG INJ J2543 VIV NAM PIPERACIL 5 MEM HOS[facility] LOUISA INC INC SOD/TAZOB ACTAM SOD 1 G/0.125 [place] [address] VIV NAM LACTATE 5 [facility] INC INC RADEX 85176 VIV NAM HAND 5 [facility] MINIMUM 3 INC INC VIEWS GROUND A0425 [facility]ANDR[facility] FR[facility]COIS [facility] AMBULANCE AMBULANCE PER SERVICE SERVICE STATUTE MILE BLOOD 55396 VIV NAM COUNT 5 MEM H[facility] COMPLETE INC INC AUTO&AUTO DIFRNTL WBC THER 97493 VIV NAM PROPH/DX 5 MEM H[facility]OS[facility] NJX EA INC INC SEQL IV PUSH SBST/DRUG FAC BLOOD 20792 VIV NAM COUNT 5 MEM HOS[facility]OS[facility] COMPLETE INC INC AUTO&AUTO DIFRNTL WBC COLLECTIO 80571 VIV NAM N VENOUS 5 MEM HOS[facility]OS[facility] BLOOD INC INC VENIPUNCT URE COMPREHEN 11570 VIV NAM SIVE 5 MEM HOSP MEM HOSP METABOLIC INC INC PANEL FEDERALLY G0467 PATRICIA CO PATRICIA CO [address] [facility] CENTER VISIT ESTAB PT SBSQ 71610 [facility] 5 MEDICAL CARE/DAY SERV 25 FOUNDATIO MINUTES N SBSQ 27750 [place] [facility] 5 MEDICAL CARE/DAY SERV 25 FOUNDATIO MINUTES N SWALLOWIN 20081 [place] FELICIANO G FUNCJ 5 MEDICAL ART W/CINERAD SERV IOGRAPY/V FOUNDATIO IDRADIOG N SBSQ 31950 [facility] 5 MEDICAL CARE/DAY SERV 25 FOUNDATIO MINUTES N INITIAL 78542 [facility] 5 MEDICAL KER RAN CARE/DAY SERV 50 FOUNDATIO MINUTES N SBSQ 84247 [facility] 5 MEDICAL CARE/DAY SERV 25 FOUNDATIO MINUTES N INITIAL 53933 [facility] 5 MAGNUS A FRANCISCO J CARE/DAY PHYSICIAN 70 SERVI MINUTES SBSQ 20856 [facility] 5 MEDICAL CARE/DAY SERV 25 FOUNDATIO MINUTES N MRI BRAIN 54080 [place] RASLAU BRAIN 5 MEDICAL FLA STEM W/O SERV CONTRAST FOUNDATIO MATERIAL N RADIOLOGI 21651 [place] LUKE CON C 5 MEDICAL EXAMINATI SERV ON CHEST FOUNDATIO SINGLE N VIEW FRONTAL RADIOLOGI 18349 [place] MARY BETH C 5 MEDICAL NIDA EXAMINATI SERV ON CHEST FOUNDATIO SINGLE N VIEW FRONTAL RADEX 17724 [place] FELICIANO ABDOMEN 1 5 MEDICAL ART SERV ANTEROPOS FOUNDATIO TERIOR N VIEW SWALLOWIN 85993 [place] FREDA G FUNCJ 5 MEDICAL ADR W/CINERAD SERV IOGRAPY/V FOUNDATIO IDRADIOG N RADIOLOGI 26247 [place] SANABRIA C 5 MEDICAL NIDA EXAMINATI SERV ON CHEST FOUNDATIO SINGLE N VIEW FRONTAL RADIOLOGI 16508 [place] [facility] CON C 5 MEDICAL EXAMINATI SERV ON CHE[place] [address] [place] ANJEL SUBHASH HEAD/BRAI 5 MEDICAL N W/O SERV CONTRAST FOUNDATIO MATERIAL N ECG 78807 [place] SHANTELL IRA ROUTINE 5 MEDICAL ECG SERV W/LEAST FOUNDATIO 12 LDS N I&R ONLY RADIOLOGI 44949 [place] LU[place] CON C 5 MEDICAL EXAMINATI SERV ON CHEST FOUNDATIO SINGLE N VIEW FRONTAL RADIOLOGI 21505 [place] LUKE CON C 5 MEDICAL EXAMINATI SERV ON CHEST FOUNDATIO SINGLE N VIEW FRONTAL RADIOLOGI 01549 [place] MARY BETH C 5 MEDICAL NIDA EXAMINATI SERV ON CHEST FOUNDATIO SINGLE N VIEW FRONTAL RADIOLOGI 68567 [place] LUKE CON C 5 MEDICAL EXAMINATI SERV ON CHEST FOUNDATIO SINGLE N VIEW FRONTAL RADIOLOGI 47143 [place] LUKE CON C 5 MEDICAL EXAMINATI SERV ON CHEST FOUNDATIO SINGLE N VIEW FRONTAL RADIOLOGI 51371 [place] MARY BETH C 5 MEDICAL NIDA EXAMINATI SERV ON CHEST FOUNDATIO SINGLE N VIEW FRONTAL RADIOLOGI 61380 [place] CARMELOANDREAK C 5 MEDICAL AYA MAR EXAMINATI SERV ON CHEST FOUNDATIO SINGLE N VIEW FRONTAL RADIOLOGI 52014 [place] DUTTA JUAN LUIS C 5 MEDICAL EXAMINATI SERV ON CHEST FOUNDATIO SINGLE N VIEW FRONTAL RADIOLOGI 64927 [place] DUTTA JUAN LUIS C 5 MEDICAL EXAMINATI SERV ON CHEST FOUNDATIO SINGLE N VIEW FRONTAL RADIOLOGI 60941 [place] EBONY VIOLETTE C 5 MEDICAL EXAMINATI SERV ON CHEST FOUNDATIO SINGLE N VIEW FRONTAL RADEX 96692 [place] DISANTIS ABDOMEN 1 5 MEDICAL GLYNN SERV ANTEROPOS FOUNDATIO TERIOR N VIEW RADIOLOGI 07679 [place] LUKE CON C 5 MEDICAL EXAMINATI SERV ON CHEST FOUNDATIO SINGLE N VIEW FRONTAL CRITICAL 48284 [place] [facility] 5 MEDICAL Y-LÓPEZ ILL/INJUR SERV GALINDO ED FOUNDATIO PATIENT N INIT 30-74 MIN INSERTION 3404 [facility] 5 Y Y INTERCOST [facility] AL CATHETER FOR DRAINAGE INSERTION 9604 [facility] 5 Y Y [facility]EL [facility] EAL TUBE CLOSED 3324 [facility] 5 Y Y BRON[facility] CONT 9671 [facility] INVASIVE 5 Y Y [facility] < 96 CONSECUTI VE HOURS CENTRAL 3897 [facility] VENOUS 5 Y Y CATHETER [facility] PLACEMENT WITH GUIDANCE BLOOD 62820 [place] LINUS SMEAR 5 MEDICAL ROBYB PERIPHERA SERV L INTERP FOUNDAT[place] W/[place] [address] [place] DELL CAR ABDOMINAL 5 MEDICAL REAL SERV TIME FOUNDATIO W/IMAGE N DOCUMENTA TION ECG 40664 [place] JULIO CHI ROUTINE 5 MEDICAL ECG SERV W/LEAST FOUNDATIO 12 LDS N I&R ONLY RADIOLOGI 77326 [place] RONN C 5 MEDICAL AYA MAR EXAMINATI SERV ON CHEST FOUNDATIO SINGLE N VIEW FRONTAL SPECIAL 81169 [place] MEJÍA STAIN 5 MEDICAL LG GROUP 1 SERV MICROORGA FOUNDATIO NISMS I&R N CYTP 40062 [place] MEJÍA SLCTV 5 MEDICAL LG CELL SERV ENHANCEME FOUNDATIO NT N INTERPJ XCPT C/V INITIAL 61812 [place] [facility] 5 MEDICAL PAOLA CARE/DAY SERV [address] THORAX 55121 [place] EBONY VIOLETTE W/O 5 MEDICAL CONTRAST SERV MATERIAL FOUNDATIO N RADIOLOGI 75833 [place] SONALI C 5 MEDICAL MARY EXAMINATI SERV ON CHEST FOUNDATIO SINGLE N VIEW FRONTAL SMR PRIM 67069 [facility] SRC 5 CO CO GRAM/GIEM [facility] SA STAIN BCT FUNGI/VERONIKA L SMR PRIM 54878 [facility] SRC 5 CO CO [facility] NT&/AFS BCT FNGI PARASIT CUL BACT 16379 [facility] XCPT 5 CO CO URINE [facility] BLOOD/STO OL AEROBIC ISOL CONCENTRA 63101 [facility] TION 5 CO CO INFECTIOU [facility] S AGENTS COLLECTIO 40112 [facility] N VENOUS 5 DIAGNOSTI DIAGNOSTI BLOOD CS CS VENIPUNCT URE ANTIBODY 74361 [facility] HISTOPLAS 5 DIAGNOSTI DIAGNOSTI MA CS CS RADIOLOGI 50551 [facility] EXAM 5 EIDER JANEEN CHEST 2 RADIOLOGY VIEWS ASSOCIAT FRONTAL&L ATERAL BLOOD 01700 [facility] COUNT 5 DIAGNOSTI DIAGNOSTI COMPLETE CS CS AUTO&AUTO DIFRNTL [facility] 58911 [facility] DIS[facility] 5 MAGNUS KIN IGN DAY PHYSICIAN MANAGEMEN SERVI T 30 MIN/< RADIOLOGI 13746 [facility] 5 EIEDDA JANEEN EXAMINATI RADIOLOGY ON CHEST ASSOCIAT SINGLE VIEW FRONTAL SBSQ 34400 [facility] 5 MAGNUS PETERSEN CARE/DAY PHYSICIAN DECALVO 25 SERVI MAR MINUTES RADIOLOGI 85123 [facility] 5 EIEDDA JANEEN EXAMINATI RADIOLOGY ON CHEST ASSOCIAT SINGLE VIEW FRONTAL ECG 16054 [facility] 5 MAGNUS PETERSEN ECG PHYSICIAN DECALVO W/LEAST SERVI MAR 12 LDS I&R ONLY INITIAL 43095 [facility] 5 MAGNUS [facility] CARE/DAY PHYSICIAN DECALVO 70 SERVI MAR MINUTES HEPATITIS 90097 VIV NAM C 5 [facility] ANTIBODY INC INC COLLECTIO 02370 VIV NAM N VENOUS 5 [facility] [place] [address] VIV NAM HEPATITIS 5 [facility] B INC INC SURFACE ANTIGEN HEPATITIS 56847 VIV Connelly CORE 5 [facility] ANTIBODY INC INC HBCAB TOTAL HEPATITIS 96817 VIV Connelly SURF 5 [facility]OS[facility] ANTIBODY INC INC HBSAB HEPATITIS 83207 VIV NAM A 5 [facility]OS[facility] ANTIBODY INC INC HAAB COMPREHEN 68667 VIV NAM SIVE 5 [facility]OS[facility] METABOLIC INC INC PANEL COLLECTIO 68322 VIV NAM N VENOUS 5 [facility] BLOOD INC INC VENIPUNCT URE SUSCEPTIB 46940 VIV NAM LTY STDY 5 [facility] ANTIMICRB INC INC IAL MICRO/AGA R DILUTJ CUL BACT 55322 VIV NAM XCPT 5 [facility] URINE INC INC BLOOD/STO OL AEROBIC ISOL CUL BACT 78885 VIV NAM AEROBIC 5 [facility] ADDL INC INC METHS DEFINITIV E EA ISOL INCISION 84235 VIV NAM & 5 [facility] DRAINAGE INC INC ABSCESS SIMPLE/SI NGLE BLOOD 43607 VIV NAM COUNT 5 [facility] H[facility]OS[facility] COMPLETE INC INC AUTO&AUTO DIFRNTL WBC THERAPEUT 53076 DERMATOLO MUSIC SORAIDA IC 5 GY PROPHYLAC CONSULTAN TIC/DX TS PSC INJECTION SUBQ/IM OBSERVATI 06368 SARAY LEVYO ON CARE 1 VIOLETTE OAKES DISCHARGE MANAGEMEN T RADIOLOGI 21332 [facility] 1 HAYDEN VERNON EXAMINATI RADIOLOGY [place] [address] MAR[facility] KIRKLAND HEAD/BRAI 8 CO CO N W/O HOSPITAL HOSPITAL CONTRAST MATERIAL BLOOD 30740 [facility] [place] COUNT 8 CO CO SMEAR [facility] MCRSCP W/MNL DIFRNTL WBC COUNT URNLS DIP 63899 [facility] [place] 8 CO CO STICK/TAB [facility] LET REAGENT AUTO MICROSCOP Y RADEX 63612 [facility] [place] RIBS UNI 8 CO CO W/POSTERO HOSPITAL HOSPITAL ANT CH MINIMUM 3 VIEWS COLLECTIO 64430 [facility] [place] N VENOUS 8 CO CO BLOOD [facility] VENIPUNCT URE RADIOLOGI 25922 [facility] [place] C EXAM 8 CO CO CHEST 2 HOSPITAL HOSPITAL VIEWS FRONTAL&L ATERAL BLOOD 46303 [facility] [place] COUNT 8 CO CO COMPLETE [facility] AUTO&AUTO DIFRNTL WBC STRAPPING 38314 MAR[place] SO, THORAX 8 [facility] Encounters Encounter Start End Date Code Location Performer Type Date OFFICE 03601 [facility] 7 7 FAMILY T VISIT CLINIC, 15 PLL MINUTES HOSPITAL [facility]IV - 7 7 [facility] 21010 [place] [address] [place] [address] T VISIT MODERATE SEVERITY [facility] 7 7 [facility] T EMERGENCY 60899 [facility] 7 7 [facility] EMERGENCY T VISIT PHYS HIGH/URGE NT SEVERITY OFFICE 90771 [facility] 7 7 FAMILY T VISIT CLINIC, 15 PLL MINUTES HOSPITAL [facility] - 7 7 [facility] 89579 [facility] DEPT 7 7 MEDICAL VISIT SERV HIGH FOUNDATIO SEVERITY& N THREAT [facility] OFFICE 75123 [facility] 7 7 FAMILY T VISIT CLINIC, 15 PLL MINUTES HOSPITAL [place] - 7 7 [facility] EMERGENCY 85406 [facility] DEPT 7 7 MAGNUS VISIT EMERGENCY HIGH PHYS SEVERITY& THREAT FUN OFFICE 15942 [facility] 7 7 FAMILY T VISIT CLINIC, 25 PLL MINUTES HOSPITAL [facility] - 7 7 [facility] OFFICE 96329 [facility] 7 7 FAMILY T VISIT CLINIC, 25 PLL MINUTES HOSPITAL - 7 7 [facility] OFF[facility] 35209 EAR, NOSE SHASHY [facility] 7 7 AND T NEW 45 THROAT MINUTES SPECIAL OFFICE 24664 [facility] 7 7 FAMILY T VISIT CLINIC, 25 PLL MINUTES [facility] - 7 7 [facility] EMERGENCY 91191 [facility] 7 7 MAGNUS DEPARTMEN EMERGENCY T VISIT PHYS HIGH/URGE NT SEVERITY EMERGENCY 78096 [facility] DEPT 7 7 MAGNUS VISIT EMERGENCY HIGH PHYS SEVERITY& THREAT [facility] VIV - [address] [facility] 43649 [facility] 7 7 FAMILY T VISIT CLINIC, 15 PLL MINUTES OFFICE 04340 JOSEMANUEL ABERNATHY OUTPATIEN 7 7 T VISIT 15 MINUTES OFFICE 79349 [facility] FAGB[facility] OUT[facility] 7 7 FAMILY T VISIT CLINIC, 25 PLL MINUTES OFFICE 91658 [facility] PILLO OUTPATI[facility] 6 6 FAMILY TAU T VISIT CLINIC, 25 PLL MINUTES OFFICE 60991 [facility] PILLO OUTPATIEN 6 6 FAMILY TAU T VISIT CLINIC, 25 PLL MINUTES OFFICE 00977 JOSEMANUEL ABERNATHY OUTPATIEN 6 6 JUAN LUIS JUAN LUIS T NEW 30 MINUTES EMERGENCY 23276 [facility] GALINDO 6 6 MAGNUS DEPARTMEN EMERGENCY T VISIT SERVI MODERATE SEVERITY HOSPITAL VIV - [address] [facility] OFFICE 48572 PATRICIA GARCIA OUTPATIEN 5 5 FAMILY T VISIT HEALTH 25 CTR MINUTES HOSPITAL VIV - 5 5 [facility] EM[facility] 96479 [facility] RADAMES DEPT 5 5 MEDICAL GALINDO VISIT SERV HIGH FOUNDATIO SEVERITY& N THREAT [facility] VIV - 5 5 [facility] 5 5 [facility] OFFICE 81089 PATRICIA JOSE OUTPATIEN 5 5 PRIMARY T VISIT CARE 15 CENTER MINUTES HOSPITAL UNIVERSIT - 5 5 Y INPATIENT HOSPITAL EMERGENCY 14066 HOR[facility]IO ECKERLINE DEPT 5 5 MEDICAL JR GERALDINE VISIT SERV HIGH FOUNDATIO SEVERITY& N THREAT [facility] CARMEN - OTHER 5 5 [facility] CARMEN - 5 5 [place] [facility] 5 5 [place] INPATIENT [facility] EM[facility]GENCY 04306 [facility] DEPT 5 5 MAGNUS PHI VISIT EMERGENCY HIGH PHYS SEVERITY& THREAT [facility] OFFICE 37948 DERMATOLO MUSIC SORAIDA OUTPATIEN 5 5 GY T VISIT CONSULTAN 15 TS PSC MINUTES HOSPITAL VIV - 5 5 [facility] OUTPATIEN INC T EMERGENCY 17813 VIV 5 5 MEM HOS[facility] DEPARTMEN INC T VISIT HIGH/URGE NT SEVERITY HOSPITAL VIV - 5 5 [facility] OUTPATIEN INC T OFFICE 29184 DERMATOLO МАРИНА OUTPATIEN 5 5 GY JEANNINE T VISIT CONSULTAN 25 TS PSC MINUTES OFFICE 59734 DER[facility]O MUSIC SORAIDA OUTPATIEN 5 5 GY T NEW 20 CONSULTAN MINUTES TS PSC OFFICE 99464 SARAY SO OUTPATIEN 4 4 [facility] T VISIT 25 MINUTES EMERGENCY 80945 MARITA SO 1 1 [facility] T VISIT HIGH/URGE NT SEVERITY EMERGENCY 50012 MARITA 8 8 [facility] T VISIT LOW/MODER SEVERITY CRITICAL MARITA ISLAS 8 8 [facility]
--- OUTSIDE RECORDS SUMMARY | 2017-09-16 15:08 | External Medical Summary Rpt | CCD ---
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 FOUNDATIO SINGLE N [place]IEW FRONTAL RADEX 93122 [place] DISANTIS ABDOMEN 1 5 MEDICAL GLYNN SERV ANTEROPOS FOUNDATIO TERIOR N VIEW RADIOLOGI 19506 [place] LUKE CON C 5 MEDICAL EXAMINATI SERV ON CHEST FOUNDATIO SINGLE N VIEW FRONTAL CRITICAL 90890 [place] [facility] 5 MEDICAL Y-LÓPEZ ILL/INJUR SERV GALINDO ED FOUNDATIO PATIENT N INIT 30-74 MIN INSERTION 3404 [facility] 5 Y Y INTERCOST [facility] AL CATHETER FOR DRAINAGE INSERTION 9604 [facility] 5 Y Y [facility] EAL TUBE CLOSED 3324 [facility] 5 Y Y [facility] CONT 9671 [facility] INVASIVE 5 Y Y [facility] < 96 CONSECUTI VE HOURS CENTRAL 3897 [facility] VENOUS 5 Y Y CATHETER [facility] PLACEMENT WITH GUIDANCE BLOOD 56023 [place] LINUS SMEAR 5 MEDICAL ROBBY PERIPHERA SERV L INTERP FOUNDAT[place] PHYS N W/[place] [address] [place] DELL CAR ABDOMINAL 5 MEDICAL REAL SERV TIME FOUNDATIO W/IMAGE N DOCUMENTA TION ECG 46609 [place] JULIO CHI ROUTINE 5 MEDICAL ECG SERV W/LEAST FOUNDATIO 12 LDS N I&R ONLY RADIOLOGI 74052 [place] RONN C 5 MEDICAL AYA MAR EXAMINATI SERV ON CHEST FOUNDATIO SINGLE N VIEW FRONTAL SPECIAL 60574 [place] MEJÍA STAIN 5 MEDICAL LG GROUP 1 SERV MICROORGA FOUNDATIO NISMS I&R N CYTP 26895 [place] MEJÍA SLCTV 5 MEDICAL LG CELL SERV ENHANCEME FOUNDATIO NT N INTERPJ XCPT C/V INITIAL 48580 [place] [facility] 5 MEDICAL PAOLA CARE/DAY SERV [address] THORAX 36224 [place] EBONY VIOLETTE W/O 5 MEDICAL CONTRAST SERV MATERIAL FOUNDATIO N RADIOLOGI 10655 [place] SONALI C 5 MEDICAL MARY EXAMINATI SERV ON CHEST FOUNDATIO SINGLE N VIEW FRONTAL SMR PRIM 14020 [facility] SRC 5 CO CO GRAM/GIEM [facility] SA STAIN BCT FUNGI/VERONIKA L SMR PRIM 62129 [facility] SRC 5 CO CO [facility] NT&/AFS BCT FNGI PARASIT CUL BACT 48712 [facility] XCPT 5 CO CO URINE [facility] BLOOD/STO OL AEROBIC ISOL CONCENTRA 77497 [facility] TION 5 CO CO INFECTIOU [facility] S AGENTS COLLECTIO 48595 [facility] N VENOUS 5 DIAGNOSTI DIAGNOSTI BLOOD CS CS VENIPUNCT URE ANTIBODY 85147 [facility] HISTOPLAS 5 DIAGNOSTI DIAGNOSTI MA CS CS RADIOLOGI 76856 [facility] EXAM 5 EIDER JANEEN CHEST 2 RADIOLOGY VIEWS ASSOCIAT FRONTAL&L ATERAL BLOOD 46140 [facility] COUNT 5 DIAGNOSTI DIAGNOSTI COMPLETE CS CS AUTO&AUTO DIFRNTL [facility] 56036 [facility] 5 MAGNUS KIN IGN DAY PHYSICIAN MANAGEMEN SERVI T 30 MIN/< RADIOLOGI 82176 [facility] 5 EIEDDA JANEEN EXAMINATI RADIOLOGY ON CHEST ASSOCIAT SINGLE VIEW FRONTAL SBSQ 47532 [facility] 5 MAGNUS PETERSEN CARE/DAY PHYSICIAN DECALVO 25 SERVI MAR MINUTES RADIOLOGI 75724 [facility] 5 EIEDDA JANEEN EXAMINATI RADIOLOGY ON CHEST ASSOCIAT SINGLE VIEW FRONTAL ECG [address] [facility] 5 MAGNUS PETERSEN ECG PHYSICIAN DECALVO W/LEAST SERVI MAR 12 LDS I&R ONLY INITIAL 38362 [facility] 5 MAGNUS [facility] CARE/DAY PHYSICIAN DECALVO 70 SERVI MAR MINUTES HEPATITIS 69717 VIV NAM C 5 [facility] ANTIBODY INC INC COLLECTIO 96835 VIV NAM N VENOUS 5 [facility] [place] [address] VIV NAM HEPATITIS 5 [facility] B INC INC SURFACE ANTIGEN HEPATITIS 27591 VIV Connelly CORE 5 [facility] ANTIBODY INC INC HBCAB TOTAL HEPATITIS 51407 VIV Connelly SURF 5 [facility] ANTIBODY INC INC HBSAB HEPATITIS 40791 VIV NAM A 5 [facility] ANTIBODY INC INC HAAB COMPREHEN 38224 VIV NAM SIVE 5 [facility] METABOLIC INC INC PANEL COLLECTIO 89776 VIV NAM N VENOUS 5 [facility] BLOOD INC INC VENIPUNCT URE SUSCEPTIB 32661 VIV NAM LTY STDY 5 [facility] ANTIMICRB INC INC IAL MICRO/AGA R DILUTJ CUL BACT 48747 VIV NAM XCPT 5 [facility] URINE INC INC BLOOD/STO OL AEROBIC ISOL CUL BACT 38303 VIV NAM AEROBIC 5 [facility] ADDL INC INC METHS DEFINITIV E EA ISOL INCISION 14669 VIV NAM & 5 [facility] DRAINAGE INC INC ABSCESS SIMPLE/SI NGLE BLOOD 33840 VIV NAM COUNT 5 [facility] COMPLETE INC INC AUTO&AUTO DIFRNTL WBC THERAPEUT 84830 DER[facility]O [facility] SORAIDA IC 5 GY PROPHYLAC CONSULTAN TIC/DX TS PSC INJECTION SUBQ/IM OBSERVATI 76516 SARAY LEVYO ON CARE 1 VIOLETTE OAKES DISCHARGE MANAGEMEN T RADIOLOGI 50635 [facility] 1 HAYDEN VERNON EXAMINATI RADIOLOGY [place] [address] MARITA KIRKLAND HEAD/BRAI 8 CO CO N W/O HOSPITAL HOSPITAL CONTRAST MATERIAL BLOOD 93837 [facility] [place] COUNT 8 CO CO SMEAR [facility] MCRSCP W/MNL DIFRNTL WBC COUNT URNLS DIP 54929 MAR[facility] KIR[place] 8 CO CO STICK/TAB [facility] LET REAGENT AUTO MICROSCOP Y RADEX 92943 MAR[facility] KIRKL[place] RIBS UNI 8 CO CO W/POSTERO HOSPITAL HOSPITAL ANT CH MINIMUM 3 VIEWS COLLECTIO 23605 MARITA [place] N VENOUS 8 CO CO BLOOD [facility] VENIPUNCT URE RADIOLOGI 84812 MAR[facility] [place] C EXAM 8 CO CO CHEST 2 HOSPITAL HOSPITAL VIEWS FRONTAL&L ATERAL BLOOD 42108 MAR[facility] [place]IRKL[place] COUNT 8 CO CO COMPLETE [facility] AUTO&AUTO DIFRNTL WBC STRAPPING 52684 MARITA SO, THORAX 8 [facility] Encounters Encounter Start End Date Code Location Performer Type Date OFFICE 09575 [facility] 7 7 FAMILY T VISIT CLINIC, 15 PLL MINUTES HOSPITAL VIV - 7 7 [facility] [address] [place] [address] [place] [address] T VISIT MODERATE SEVERITY [facility] 7 7 [facility] T EMERGENCY 64643 [facility] 7 7 [facility] EMERGENCY T VISIT PHYS HIGH/URGE NT SEVERITY OFFICE 05920 [facility] 7 7 FAMILY T VISIT CLINIC, 15 PLL MINUTES HOSPITAL [facility] 7 7 [facility] 62776 [facility] DE[facility] 7 7 MEDICAL VISIT SERV HIGH FOUNDATIO SEVERITY& N THREAT [facility] OFFICE 80857 [facility] 7 7 FAMILY T VISIT CLINIC, 15 PLL MINUTES HOSPITAL [facility] - 7 7 [facility] EMERGENCY 23979 [facility] DEPT 7 7 MAGNUS VISIT EMERGENCY HIGH PHYS SEVERITY& THREAT FUN OFFICE 97785 [facility] 7 7 FAMILY T VISIT CLINIC, 25 PLL MINUTES HOSPITAL [facility] - 7 7 [facility] OFFICE 94284 [facility] 7 7 FAMILY T VISIT CLINIC, 25 PLL MINUTES HOSPITAL - 7 7 [facility] 13228 EAR, NOSE SHASHY [facility] 7 7 AND T NEW 45 THROAT MINUTES SPECIAL OFFICE 78686 [facility] 7 7 FAMILY T VISIT CLINIC, 25 PLL MINUTES HOSPITAL [facility] - 7 7 [facility] EMERGENCY 73750 [facility] 7 7 MAGNUS DEPARTMEN EMERGENCY T VISIT PHYS HIGH/URGE NT SEVERITY EMERGENCY 22817 [facility] DEPT 7 7 MAGNUS VISIT EMERGENCY HIGH PHYS SEVERITY& THREAT [facility] VIV - 7 7 [facility] 67764 [facility] 7 7 FAMILY T VISIT CLINIC, 15 PLL MINUTES OFFICE 48819 [facility] ABERNATHY OUTPATIEN 7 7 T VISIT 15 MINUTES OFFICE 69016 [facility] FAGB[facility] OUTPATI[facility] 7 7 FAMILY T VISIT CLINIC, 25 PLL MINUTES OFFICE 53194 [facility] PILLO OUTPATIEN 6 6 FAMILY TAU T VISIT CLINIC, 25 PLL MINUTES OFFICE 80922 [facility] OUTPATIEN 6 6 FAMILY TAU T VISIT CLINIC, 25 PLL MINUTES OFFICE 76686 [facility]SE[facility]UEL ABERNATHY OUTPATIEN 6 6 JUAN LUIS JUAN LUIS T NEW 30 MINUTES EMERGENCY 33779 [facility] GALINDO 6 6 MAGNUS DEPARTMEN EMERGENCY T VISIT SERVI MODERATE SEVERITY HOSPITAL VIV - 5 5 [facility] OUTPATIEN [facility] OFFICE 40902 PATRICIA GARCIA OUTPATIEN 5 5 FAMILY T VISIT HEALTH 25 CTR MINUTES HOSPITAL VIV - 5 5 [facility] 76813 [facility] RADAMES DEPT 5 5 MEDICAL GALINDO VISIT SERV HIGH FOUNDATIO SEVERITY& N THREAT [facility] VIV - 5 5 [facility] 5 [facility] OUTPATIEN [facility] OFFICE 99429 PATRICIA JOSE OUTPATIEN 5 5 PRIMARY T VISIT CARE 15 CENTER MINUTES HOSPITAL UNIVERSIT - 5 5 Y INPATIENT HOSPITAL EMERGENCY 12093 [facility] ECKER[facility] DEPT 5 5 MEDICAL JR GERALDINE VISIT SERV HIGH FOUNDATIO SEVERITY& N THREAT [facility] CARMEN - OTHER 5 5 [facility] CARMEN - 5 [address] [place] [address] [facility] CAR[facility] - 5 5 [place] [facility] EMERGENCY 13567 [facility] DEPT 5 5 MAGNUS PHI VISIT EMERGENCY HIGH PHYS SEVERITY& THREAT [facility] OFFICE 72810 [facility] SORAIDA OUTPATIEN 5 5 GY T VISIT CONSULTAN 15 TS PSC MINUTES HOSPITAL VIV - 5 5 [facility] OUTPATIEN INC T EMERGENCY 48923 VIV 5 5 MEM [facility] DEPARTMEN INC T VISIT HIGH/URGE NT SEVERITY HOSPITAL VIV - 5 5 [facility] OUTPATIEN INC T OFFICE 71206 DERMATOLO МАРИНА OUTPATIEN 5 5 GY JEANNINE T VISIT CONSULTAN 25 TS PSC MINUTES OFFICE 58246 [facility] OUTPATIEN 5 5 GY T NEW 20 CONSULTAN MINUTES TS PSC OFFICE 11006 SARAY SO OUTPATIEN 4 4 VIOLETTE [facility] T VISIT 25 MINUTES EMERGENCY 07608 MARITA SO 1 1 [facility] T VISIT HIGH/URGE NT SEVERITY EMERGENCY 27206 MARITA 8 8 [facility] T VISIT LOW/MODER SEVERITY CRITICAL MARITA ISLAS 8 8 [facility]
--- NOTE | 2017-09-16 15:14 | Emergency Room Report ---
History of Present Illness Time Seen by MD Santoyo Presenting Problem in Triage Pt arrived:Walked Presenting Problem:RIGHT HAND AND LEFT SHOULDER PAIN AFTER FALLING OUT OF A TREE. 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 N Clinical Suspician of Infection? N Mental Status: 1 - Regular (Normal Baseline) Sepsis Risk:Low Sepsis Risk Have you (or family members/close friends) recently traveled outside the [place]? N If Yes, where/when: Have you had exposure to infectious disease within the past month? N TB? Other? Specify: Comment The patient complains of injuries to his RIGHT hand and LEFT shoulder. He was in a walnut tree 2 days ago on Friday jumping up and down on a branch trying to knock down some walnuts when the branch broke and he fell. He complains of injuries to his RIGHT hand, particularly hurts in the area of the third and fourth metacarpal heads. He has pain on the superior aspect of his LEFT shoulder. He has abrasions on his LEFT cheek. He had swelling in that area but has since gone down. His neck feels a little stiff. No loss of consciousness. Using ibuprofen without improvement. States he cannot take a lot of ibuprofen because it makes him sick and he has liver problems, hepatitis C. ALLERGIES Coded Allergies: codeine (01/19/17) Home Medications Active Scripts Prednisone (Prednisone 20MG) 20 MG PO BID #10 TAB Prov: 01/19/17 Reported Medications Gabapentin (Gabapentin 600MG) 600 MG PO Q8 #120 Temazepam 15 MG PO QHS #30 Trazodone Hcl (Trazodone HCl) 50 MG PO QHSP PRN SLEEP #30 History Medical History General CAD? No Angina: No CT: No Hypertension? No Hyperlipidemia? No CHF? No COPD? No Asthma? No Anemia? No Hernia? No Thyroid Problems? No Hypothyroidism? No CVA? No Seizures? No Diabetes? No UTI? No Stones? No GB Disease: No Nephritic Syndrome? No Asplenia? No Hepatitis? Yes Cataracts? No Glaucoma? No MRSA? Yes TB? No Cancer? No More? Yes Additional hx: HISTOPLASMOSIS, sleep disorder Immunization Hx DT/Tetanus Unknown Surgical Hx Previous Surgery?Y thumb surgery Social History Smoking Hx Smoker: Current Every Day Smoker Tobacco: Yes Type Cigarettes Packs/day < 1 Pack Alcohol Alcohol: Yes Review of Systems All Other Systems Reviewed and Negative Constitutional denies fever Cardiovascular denies syncope Musculoskeletal joint pain, neck pain Physical Exam Vital Signs Vital Signs Date Time Temp Pulse Resp B/P Pulse O2 O2 Flow FiO2 Ox Delivery Rate 09/16 1610 84 18 138/95 98 09/16 1451 98.2 92 18 141/110 95 General Appearance no apparent distress Ear, Nose, Throat scabs on the LEFT cheek over the maxillary and zygoma area with tenderness and mild edema. No depression of the zygoma or maxillary bones., facial sensation intact. Extraocular movements intact. Neck minimal posterior tenderness, full range of motion. Respiratory Status No: respiratory distress. Cardiovascular regular rate/rhythm, normal peripheral pulses Extremities scabs on the dorsum of his RIGHT wrist and hand. Tenderness in the region of his third and fourth metacarpal heads and less so over the metacarpals in general., no deformity. Neurovascular status intact. Good range of motion., scabs present on this barrier aspect of his LEFT shoulder with tenderness. Mild tenderness over the deltoid area. He can abduct approximately 45 degrees but says it hurts too much togo further., distal neurovascular status intact. Neurologic alert, no motor/sensory deficits Medical Decision Making LABS/Meds/Orders Pt receiving controlled substance in ED? Yes Jaspreet was queried for this patient? Yes Comment [id number] 15 rxs. last rxs gabapentin on 09/12/17, 60 oxycodone 5 mg on 09/03/17. (30 day supply). Results/Orders Orders Procedure Date/time Status STABILIZE JOINT 09/16 1528 Active XRAY/CT/US XRAY/CT/US XRAY hand, shoulder Comment Shoulder X-ray interpreted by Asif Underwood MD. Negative for fracture, dislocation, or foreign body. Hand X-ray interpreted by Asif Underwood MD. Negative for fracture, dislocation , or foreign body. Old fifth metacarpal fracture (nontender). Progress - The patient refuses CT scan of facial bones and cervical spine. He says he is not having significant pain in those areas like he is in his hand and shoulder and only wants his hand and shoulder evaluated radiographically. There is an orthopedic physician in [place] that he prefers to follow-up with. 3:45 PM: I discussed the patient's Jaspreet report with him. He says that he took the rest of his oxycodone after he injured himself on Friday. He is now out. He states he is on this medication for chronic neck pain, prescribed by a specialist in [place]. He says he is not in pain management. Departure Departure Disposition DC Home or Self Care(routine) Clinical Impression Primary Impression: Contusion of right hand Qualifiers: Encounter type: initial encounter Qualified Code: S60.221A - Contusion of right hand, initial encounter Secondary Impressions: Cervical strain Qualifiers: Encounter type: initial encounter Qualified Code: S16.1XXA - Strain of muscle, fascia and tendon at neck level, initial encounter Contusion of left shoulder Qualifiers: Encounter type: initial encounter Qualified Code: S40.012A - Contusion of left shoulder, initial encounter Facial contusion Qualifiers: Encounter type: initial encounter Qualified Code: S00.83XA - Contusion of other part of head, initial encounter Fall from tree Qualifiers: Encounter type: initial encounter Qualified Code: W14.XXXA - Fall from tree, initial encounter Left shoulder strain Qualifiers: Encounter type: initial encounter Qualified Code: S46.912A - Strain of unspecified muscle, fascia and tendon at shoulder and upper arm level, left arm, initial encounter Sprain of right hand Qualifiers: Encounter type: initial encounter Qualified Code: S63.91XA - Sprain of unspecified part of right wrist and hand, initial encounter Condition STABLE Patient Instructions DI for Hand Pain, DI for Shoulder Pain, How To Perform RICE (Rest, Ice, Compress, Elevate), How to Use a Sling Additional Instructions Follow-up with your orthopedic physician in [place]. Call tomorrow to make appointment. Dequan wrap to RIGHT hand for swelling and pain. Sling LEFT shoulder for 3-4 days. Additional instructions for EXTREMITY PAIN: See your physician as soon as possible for further evaluation. Return to an emergency department immediately if you have uncontrollable pain, fever, loss of feeling or inability to move your injured extremity. Prescriptions Current Visit Scripts HYDROCODONE/ACETAMINOPHEN ([place] 5-325 Tablet) 1 TAB PO Q6HP PRN pain #10 TAB ED Critical Care Critical Care No at 2004
--- OUTSIDE RECORDS SUMMARY | 2017-09-16 15:14 | External Medical Summary Rpt | CCD ---
Author Author , MADDI LINDA Address Unknown Phone [email or web address] [place] Care Team Providers Care Boat Tender Name Role Phone ADEGBOYEGA FRANCISCO J, Unavailable Unavailable ADEGBOYEGA FRANCISCO J ALHAJERI, ALHAJERI Unavailable Unavailable AOUAD, AOUAD Unavailable Unavailable ARNOLD, ARNOLD Unavailable Unavailable ARNOLD, ARNOLD Unavailable Unavailable ARNOLD JUAN LUIS, ARNOLD Unavailable Unavailable JUAN LUIS ARNOLD JUAN LUIS, ARNOLD Unavailable Unavailable JUAN LUIS AUXIER, AUXIER Unavailable Unavailable AYOOB, AYOOB Unavailable Unavailable SHIPMAN, SHIPMAN Unavailable Unavailable BEINEKE, BEINEKE Unavailable Unavailable SANABRIA NIDA, SANABRIA Unavailable Unavailable [facility] Unavailable Unavailable SERVICE, [facility] Unavailable Unavailable SERVICE, [facility] FRANK KIN IGN, Unavailable Unavailable FRANK KIN IGN CHESTNUT, CHESTNUT Unavailable Unavailable CALI, CALI Unavailable Unavailable [facility], Unavailable Unavailable [facility] Unavailable Unavailable CLINIC, PLL, [facility] SAM, SAM Unavailable Unavailable COOK, COOK [...] Unavailable JACKELIN SHE, JACKELIN Unavailable Unavailable SHE [facility], Unavailable Unavailable [facility] Unavailable Unavailable HOSPITAL, [facility] GHALI, GHALI Unavailable Unavailable DUTTA JUAN LUIS, DUTTA JUAN LUIS Unavailable Unavailable [facility], [facility] Unavailable Unavailable [facility]I HAGENSCHJAYLENIDER JANEEN, Unavailable Unavailable HAGCHCARLY JANEEN [facility] Un[facility] Unavailable [facility], [facility] CATALINO, CATALINO Unavailable Unavailable LISETTE MASKEY, LISETTE Unavailable Unavailable MASKEY PILLO TAU, PILLO Unavailable Unavailable TAU ROXANNE III GERALDINE, Unavailable Unavailable ROXANNE III GERALDINE [facility] Unavailable Unavailable IMAGING [facility], [facility] LINUS ROBBY, LINUS Unavailable Unavailable ROBBY ANJEL SUBHASH, ANJEL SUBHASH Unavailable Unavailable JULIO [facility], [facility] Unavailable [facility]available [facility] CITLALY, SHANIADY Unavailable Unavailable [facility] Un[facility] FELICIANO ART, FELICIANO Unavailable Unavailable ART SARAY VIOLETTE, SARAY Unavailable Unavailable VIOLETTE SARAY VIOLETTE, SARAY Unavailable Unavailable VIOLETTE SARAY, JOHN, Unavailable Unavailable SARAY, JOHN LUKE CON, LUKE CON Unavailable Unavailable [facility] Unavailable Unavailable [facility]AT, [facility] CHAZ WARE Unavailable Unavailable [facility] Un[facility] Unavailable [facility], [facility] HERNANDEZ-LÓPEZ GALINDO, Unavailable Unavailable HERNANDEZ-LÓPEZ GALINDO MUSIC SORAIDA, MUSIC SORAIDA Unavailable Unavailable ESTUARDO, ESTUARDO Unavailable Unavailable FERNANDEZ, FERNANDEZ Unavailable Unavailable [facility], Unavailable Unavailable [facility] DELVIS, DELVIS Unavailable Unavailable EBONY VIOLETTE, EBONY VIOLETTE Unavailable Unavailable [facility], Unavailable Unavailable [facility]AS[facility] Unavailable Unavailable EMS, [facility] Unavailable Unavailable EMS, [facility], Unavailable Unavailable [facility] Un[facility]IAN SERV[facility], [facility] Unavailable Unavailable KETAN, [facility]AN DEJESUS GALINDO, DEJESUS GALINDO Unavailable Unavailable МАРИНА JEANNINE, Unavailable Unavailable МАРИНА JEANNINE SWINEY, SWINEY Unavailable Unavailable SONALI MARY, SONALI Unavailable Unavailable MARY SORIA, SORIA Unavailable Unavailable DWYER, DWYER Unavailable Unavailable LES JAM, LES JAM Unavailable Unavailable [facility] Unavailable [facility], [facility], Unavailable Unavailable [facility], [facility] Unavailable Unavailable [facility], [facility] Unavailable Unavailable [facility] Unavailable [facility]available [facility] MARY BETH, MARY BETH Unavailable Unavailable MARY BETH NIDA, MARY BETH Unavailable Unavailable NIDA ZACRISTÓBALROLILYKAYA MAR, Unavailable Unavailable ZAGUROVSKAYA MAR RIVERA, RIVERA [...] WITHOUT INC HEPATIC COMA B399 HISTOPLASMO 05-21-2017 [facility] UNSPECIFIED INC I10 ESSENTIAL 05-20-2017 [facility] N J449 CHRONIC 05-20-2017 [facility] DISEASE UNS K219 GASTRO-ESOP 05-20-2017 [facility] REFLUX [facility] WITHOUT ESOPHAGITIS R070 PAIN IN 05-20-2017 [facility] THROAT N EMERGENCY PHYS R1310 DYSPHAGIA 05-20-2017 [facility] Z880 ALLERGY 05-20-2017 [facility] STATUS TO [facility] Z885 ALLERGY 05-20-2017 [facility] STATUS TO [facility] AGENT STATUS R498 OTHER VOICE 05-13-2017 [facility] RESONANCE CLINIC, PLL DISORDERS Z6820 BODY [...] SERV [facility] GASTROINTES T TRACT STATUS S32676 DECREASED 04-21-2017 [facility] BLOOD SERV CELL COUNT [facility] UNSPECIFIED E440 MODERATE 04-21-2017 [facility] PROTEIN-NANCI SERV ORIE [facility] MALNUTRITIO N E876 HYPOKALEMIA 04-21-2017 [facility] I358 OTHER 04-21-2017 [facility] NONRHEUMATI SERV C AORTIC [facility]OUND[facility] VALVE DISORDERS R1313 DYSPHAGIA 04-21-2017 [facility] PHARYNGEAL SERV PHASE [facility] R499 UNSPECIFIED 04-21-2017 [facility] RESONANCE [facility] DISORDER R509 FEVER 04-21-2017 [facility] UNSPECIFIED SERV [facility] I88276H FOOD IN 04-21-2017 [facility] PHARYNX SERV [...] & PARASITIC DZ J069 ACUTE UPPER 04-10-2017 [facility] PLL INFECTION UNSPECIFIED D3709 NEOPLASM 04-08-2017 [facility] BHV OTH PRACTIC SPEC SITES ORAL CAV D380 NEOPLASM OF 04-08-2017 [facility] BEHAVIOR OF PRACTIC LARYNX H9201 OTALGIA 04-08-2017 [facility] J342 DEVIATED 04-08-2017 [facility] M1990 UNSPECIFIED 04-08-2017 [facility] TIS UNSPECIFIED SITE R12 HEARTBURN 04-08-2017 [facility] J0431 SUPRAGLOTTI 04-06-2017 [facility] TIS N EMERGENCY UNSPECIFIED PHYS WITH OBSTRUCTION R0600 DYSPNEA 04-06-2017 [facility] M542 CERVICALGIA 04-03-2017 [facility] KETAN R000 TACHYCARDIA 04-03-2017 [facility] UNSPEC[facility]INIC, PLL R030 ELEVATED 04-03-2017 [facility] B[facility] URE READING CLINIC, PLL WITHOUT DX HTN R05 COUGH 04-03-2017 [facility] KETAN J383 OTHER 03-04-2017 [facility] DISEASES OF FAMILY VOCAL CLINIC, PLL CORDS I444 LEFT 02-26-2017 [facility] FASCICULAR [facility] BLOCK R9431 ABNORMAL 02-26-2017 [facility] ELECTROCARD SERV IOGRAM [facility] R490 DYSPHONIA 02-21-2017 [facility] B379 CANDIDIASIS 02-04-2017 [facility] UNSPECIFIED CLINIC, PLL R221 LOCALIZED 02-04-2017 [facility]LL[facility] MASS AND CLINIC, PLL LUMP NECK B370 CANDIDAL 01-31-2017 [facility] STOMATITIS N EMERGENCY PHYS I959 HYPOTENSION 01-31-2017 [facility] N EMERGENCY UNSPECIFIED PHYS J9811 ATELECTASIS 01-27-2017 [facility] J040 ACUTE 01-06-2017 ARNOLD LARYNGITIS M150 PRIMARY 01-06-2017 ARNOLD GENERALIZED OSTEOARTHRI TIS R531 WEAKNESS 01-06-2017 ARNOLD L2089 OTHER 12-10-2016 [facility] DERMATITIS CLINIC, PLL H6500 ACUTE 09-11-2016 [facility] SEROUS [facility]ILY OTITIS CLINIC, PLL MEDIA UNSPECIFIED EAR B1710 ACUTE 08-28-2016 [facility] HEPATITIS C FAMILY WITHOUT CLINIC, PLL HEPATIC COMA R7301 IMPAIRED 08-28-2016 [facility] GLUCOSE CLINIC, PLL R749 ABNORMAL 08-22-2016 [facility] [employer] LEVEL UNSPECIFIED R945 ABNORMAL 08-22-2016 [facility] [employer] FUNCTION STUDIES Z0000 ENCOUNTER 08-22-2016 [facility] GEN ADULT FAMILY MED EXAM CLINIC, PLL W/O ABNORMAL FIND G4700 INSOMNIA 08-08-2016 ARNOLD JUAN LUIS UNSPECIFIED G894 CHRONIC 08-08-2016 ARNOLD JUAN LUIS PAIN SYNDROME H6992 UNSPECIFIED 06-13-2016 [facility] EUSTACHIAN N EMERGENCY TUBE SERVI DISORDER LEFT EAR H9202 OTALGIA 06-13-2016 [facility] LEFT EAR N EMERGENCY SERVI R51 HEADACHE 05-11-2016 [facility] R569 UNSPECIFIED 05-11-2016 [facility] S73297 PAIN IN 10-13-2015 [facility] M549 DORSALGIA 10-13-2015 [facility] [facility] R09737 PAIN IN 10-13-2015 [facility] [facility] I96 GANGRENE 10-02-2015 [facility] NOT SERV ELSEWHERE [facility]OUNDATION CLASSIFIED R069 UNSPECIFIED 10-02-2015 [facility] ABNORMALITI [facility] ES OF BREATHING [id number] LACERATION 10-02-2015 [facility] W/O FB RT SERV THUMB W/O FOUNDATION DAMAGE NAIL INIT G59568 ACQUIRED 10-02-2015 [facility] ABSENCE OF SERV LEFT THUMB FOUNDATION R14981 CELLULITIS 10-01-2015 [facility] OF LEFT SERV UPPER LIMB FOUNDATION L0390 CELLULITIS 10-01-2015 [facility]PEC[facility] SERVICE Q57785 PAIN IN 10-01-2015 [facility] [id number] OPEN BITE 10-01-2015 [facility] OF LEFT MEDICAL THUMB W/O IMAGING ASS DAMAGE NAIL INITIAL 86597 ESOPHAGEAL 08-24-2015 [facility] 95183 INSOMNIA 08-24-2015 [facility] 7871 HEARTBURN 08-24-2015 [facility] 03926 UNSPECIFIED 08-17-2015 [facility] HEPATITIS C FOUNDATION W/O HEPATIC COMA 65930 HISTOPLASMA 08-17-2015 [facility] CAPSULATUM SERV WITHOUT [facility]OUNDATION MENTION MANIFEST 7099 UNSPECIFIED 08-17-2015 [facility] DISORDER [facility] OF [facility]OUNDATION SKIN&SUBCUT ANEOUS TISSUE 66958 DYSPHAGIA 08-17-2015 [facility] UNSPECIFIED SERV FOUNDATION 7904 NONSPEC 08-17-2015 [facility] E[facility] SERV OF LEVELS FOUNDATION OF TRANSAMINAS E/LDH 56363 UNSPEC 08-14-2015 [facility] HISTOPLASMO SERV SIS WITHOUT FOUNDATION MENTION MANIFEST 2639 UNSPECIFIED 08-14-2015 [facility] PROTEIN-NANCI [facility]OUNDATION ORIE MALNUTRITIO N 2768 HYPOPOTASSE 08-14-2015 [facility] AILYN [facility] 46869 ENCEPHALOPA 08-14-2015 [facility] THY, SERV UNSPECIFIED FOUNDATION 25456 OTHER 08-12-2015 [facility] [place]TERATION [place] [address] DYSPHAGIA 08-12-2015 [facility] OROPHARYNGE N PHYSICIAN AL PHASE SERVI 4371 OTH 08-11-2015 [facility] GENERALIZED SERV ISCHEMIC FOUNDATION CEREBROVASC ULAR DISEASE V1209 PERSONAL HX 08-11-2015 [facility] INFECTIOUS& FOUNDATION PARASITIC DISEASE 13977 OTHER 08-10-2015 [facility] PNEUMOTHORA SERV X FOUNDATION V5882 ENCOUNTER 08-10-2015 [facility] FIT[facility]&ADJ SERV [facility] NON-VASCULA R CATHETER NEC 5119 UNSPECIFIED 08-08-2015 [facility] PLEURAL [facility] EFFUSION [facility]OUNDATION 9331 FOREIGN 08-08-2015 [facility] B[facility] IN SERV LARYNX FOUNDATION E915 FOREIGN 08-08-2015 [facility] ACCIDENTALL [facility] Y ENTERING OTHER ORIFICE 11827 OTHER 08-07-2015 [facility] ENCEPHALOPA SERV THY FOUNDATION 38043 NONSPECIFIC 08-07-2015 [facility] ABNORMAL [facility] ELECTROCARD FOUNDATION IOGRAM 55058 SOLITARY 08-02-2015 [facility] PULMONARY SERV NODULE FOUNDATION 486 PNEUMONIA, 08-01-2015 [facility] ORGANISM SERV UNSPECIFIED FOUNDATION 65787 UNSPECIFIED 08-01-2015 [facility] SHOCK [facility] 68122 MECH COMP 07-28-2015 [facility] D[facility] OTH SERV IMPLANT&INT FOUNDATION ERNAL DEVICE NEC 07529 PRIMARY 07-27-2015 [facility] SPONTANEOUS SERV [facility] PNEUMOTHORA X 1124 CANDIDIASIS 07-26-2015 [facility] OF LUNG SERV FOUNDATION 2875 UNSPECIFIED 07-26-2015 [facility] THROMBOCYTO [facility] PENIA 76659 LEUKOCYTOPE 07-26-2015 [facility] MILA [facility] UNSPECIFIED FOUNDATION 84211 OTHER 07-26-2015 [facility] SPECIFIED SERV CARDIAC FOUNDATION DYSRHYTHMIA S 74487 CALCU 07-26-2015 [facility] GALLBLADD SERV W/O MENTION FOUNDATION CHOLECYST/O BST 76899 SEPSIS 07-26-2015 [facility] V5881 FITTING AND 07-26-2015 [facility] OF [facility] VASCULAR CATHETER 0389 UNSPECIFIED 07-25-2015 [facility] 1179 OTHER AND 07-25-2015 [facility]PITAL MYCOSES 87592 OTHER 07-25-2015 [facility] A 60269 ACUTE 07-25-2015 [facility] FAILURE 10693 OTHER 07-25-2015 [facility] DISEASES OF SERV LUNG NOT FOUNDATION ELSEWHERE CLASSIFIED 80145 FEVER 07-25-2015 [facility] UNSPECIFIED SERV [facility]ATION 81918 LOSS OF 07-25-2015 [facility]IGHT [facility] 80100 SEPTIC 07-25-2015 [facility] 7856 ENLARGEMENT 07-25-2015 [facility] OF LYMPH SERV NODES [facility]OUNDATION 7862 COUGH 07-25-2015 [facility] 96932 OTHER 07-25-2015 [facility] NONSPECIFIC SERV ABNORMAL FOUNDATION FINDING OF LUNG FIELD 31866 SEVERE 07-25-2015 [facility] SEPSIS [facility] 6961 OTHER 07-12-2015 [facility] PSORIASIS N PHYSICIAN AND SIMILAR SERVI DISORDERS 88499 CHRONIC 07-10-2015 [facility] HEPATITIS C HOSPITAL WITHOUT MENTION HEPATIC COMA 00618 SHORTNESS 07-10-2015 [facility] 61274 WHEEZING 07-10-2015 [facility] N EMERGENCY PHYS 6929 CONTACT 06-08-2015 DER[facility]Y [...] MEM HOSP USE OF INC OTHER MEDICATIONS 64964 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 SARAY VIOLETTE CHRONIC BRONCHITIS WITHOUT EXACERBAT 7821 RASH AND 03-08-2014 [facility] VIOLETTE OTHER NONSPECIFIC SKIN ERUPTION 41414 OTHER CHEST 08-01-2011 [facility] VIOLETTE PAIN 9925 HEAT 08-01-2011 [facility] VIO[facility]TT[facility] EXHAUSTION, UNSPECIFIED E8499 UNSPECIFIED 08-01-[address] OF OCCURRENCE E9000 ACCIDENT 08-01-2011 [facility] VIOLETT[facility] DUE EXCESSIVE HEAT WEATHER CONDITIONS 49625 DEHYDRATION 07-31-2011 [facility] HOSPITAL 59341 PEPTC ULCR 07-31-2011 [facility] UNS HOSPITAL ACUT/CHRN W/O HEMOR PERF/OBST 7820 DISTURBANCE 07-31-2011 [facility] OF SKIN HOSPITAL SENSATION 19276 CHEST PAIN 07-31-2011 [facility] 40293 ABDOMINAL 07-31-2011 [facility] PAIN, HOSPITAL EPIGASTRIC 3688 OTHER 08-02-2008 [facility] SPECIFIED HOSPITAL VISUAL DISTURBANCE S 5258 OTHER SPEC 08-02-2008 [facility] DISORDERS HOSPITAL TEETH&SUPPO RTING STRUCTURES 5259 UNSPECIFIED 08-02-2008 [facility] DISORDER HOSPITAL TEETH&SUPPO RTING STRUCTURES 8830 OPEN WOUND 08-02-2008 [facility] WITHOUT MENTION COMPLICATIO N 920 CONTUSION 08-02-2008 [facility] SCALP AND NECK EXCEPT EYE 9221 CONTUSION 08-02-2008 [facility] WALL Procedures Procedure DOS Code Location Performer Comment NEBULIZER E0570 [facility] CARLISLE WITH 7 SURGICAL SURGICAL COMPRESSO R NEBULIZER E0570 [facility] CARLISLE WITH 7 SURGICAL SURGICAL COMPRESSO R DRUG TEST 60180 [facility] AUXIER PRSMV 7 FAMILY INSTRMNT CLINIC, CHEMISTRY PLL ANALYZERS NEBULIZER E0570 [facility] CARLISLE WITH 7 SURGICAL SURGICAL COMPRESSO R COMPREHEN 46196 VIV NAM SIVE 7 MEM HOSP MEM [facility]OS[facility] METABOLIC INC INC PANEL ANTIBODY 06640 VIV NAM HISTOPLAS 7 MEM HOSP MEM [facility]OS[facility] MA INC INC CULTURE 70381 VIV NAM FNGI 7 MEM HOSP [facility]OS[facility] MOLD/YEAS INC INC T PRSMPTV OTH XCPT BLOOD NFCT AGNT 83436 VIV NAM GENOTYP 7 MEM HOSP MEM HOSP NUCLEIC INC INC ACID HEPATITIS C VIRUS BLOOD 14648 VIV NAM COUNT 7 MEM HOSP MEM HOSP COMPLETE INC INC AUTO&AUTO DIFRNTL WBC COLLECTIO 65793 VIV NAM N VENOUS 7 MEM HOSP MEM HOSP BLOOD INC INC VENIPUNCT URE COMPLEMEN 02209 VIV NAM T 7 MEM HOSP MEM HOSP FIXATION INC INC TESTS EACH ANTIGEN RADIOLOGI 65834 [facility] VIRAJ Paredes 7 EXAMINATI RADIOLOGY ON NECK ASSOCIAT SOFT TISSUE MOTION 81138 COUNT INCLUDES THE [facility] FLUOR 7 [facility]ALTHFORMERLY [facility] E E [facility] C/V REC SWALLOWIN 18396 [place] FERNANDE[facility] G FUNCJ 7 MEDICAL W/CINERAD SERV IOGRAPY/V FOUNDATIO IDRADIOG N NEBULIZER E0570 [facility] CARLISLE WITH 7 SURGICAL SURGICAL COMPRESSO R HOSPITAL 79453 [place] [facility] DISCHARGE 7 MEDICAL A DAY SERV MANAGEMEN FOUNDATIO T 30 N MIN/< SBSQ 07674 [place] [facility] 7 MEDICAL CARE/DAY SERV 25 FOUNDATIO MINUTES N RADEX 10393 [place] FERNA[facility]DE[place] ABDOMEN 1 7 MEDICAL SERV ANTEROPOS FOUNDATIO TERIOR N VIEW ECHO 61892 [place] SARAHI [facility] R-T 7 MEDICAL 2D SERV W/WOM-MOD FOUNDATIO E COMPL N SPEC&COLR D SBSQ 84861 [facility] 7 MEDICAL CARE/DAY SERV 25 FOUNDATIO MINUTES N SWALLOWIN 75658 [facility] MEDICAL W/CINERAD SERV IOGRAPY/V FOUNDATIO IDRADIOG N SBSQ 36161 [facility] 7 MEDICAL CARE/DAY SERV 25 FOUNDATIO MINUTES N SBSQ 41044 [facility] 7 MEDICAL CARE/DAY SERV 25 FOUNDATIO MINUTES N SPECIAL 10713 [place] [address] MEDICAL PIECORO GROUP 1 SERV MICROORGA FOUNDATIO NISMS I&R N CYTP 71709 [place] [address] MEDICAL PIECORO TION SERV SMEARS & FOUNDATIO INTERPRET N ATION SPINAL 68580 [place] ALHAJERI PUNCTURE 7 MEDICAL LUMBAR SERV DIAGNOSTI FOUNDATIO C N FLUOR 66009 [place] ALHAJERI NEEDLE/CA 7 MEDICAL TH SERV SPINE/PAR FOUNDATIO ASPINAL N DX/THER ADDON SBSQ 23374 [facility] 7 MEDICAL A CARE/DAY SERV 35 FOUNDATIO MINUTES N SBSQ 43876 [facility] 7 MEDICAL CARE/DAY SERV 25 FOUNDATIO MINUTES N SBSQ 80475 [facility] 7 MEDICAL CARE/DAY SERV 25 FOUNDATIO MINUTES N SBSQ 46715 [facility] 7 MEDICAL A CARE/DAY SERV 35 FOUNDATIO MINUTES N EGD 81775 [facility] 7 MEDICAL BIOPSY SERV SINGLE/[place] [address] [facility]G 7 MEDICAL PATHOLOGY SERV FOUNDATIO GROSS&NIDA N ROSCOPIC EXAM INITIAL 09206 [facility] 7 MEDICAL CARE/DAY SERV 50 FOUNDATIO MINUTES N SBSQ 94336 [facility] 7 MEDICAL CARE/DAY SERV 25 FOUNDATIO MINUTES N INITIAL 80779 [facility] 7 MEDICAL CARE/DAY SERV 30 FOUNDATIO MINUTES N RADIOLOGI 53882 [facility] EX[facility] 7 MEDICAL CHEST 2 SERV VIEWS FOUNDATIO FRONTAL&L N ATERAL RADEX 33483 [place] FREDA ABDOMEN 1 7 MEDICAL SERV ANTEROPOS FOUNDATIO TERIOR N VIEW INITIAL 85461 [facility] 7 MEDICAL MASKEY CARE/DAY SERV 50 [place] [address] [facility] SURG [address] [place] [address] GROSS&NIDA ROSCOPIC EXAM EXC 05032 MEENA ARZOLARAD LESION 7 W PALATE PHYSICIAN UVULA W/O PRACTIC CLOSURE SPECIAL 85692 [facility] STAIN [address] [place] [address] HOSPITAL MICROORGA NISMS I&R LARYNGOSC 29246 MEENA SAM OPY 7 W W/BIOPSY PHYSICIAN MICROSCOP PRACTIC E/TELESCO PE LARYNGOSC 77634 [facility] [address] W/BIOPSY( IES) CT SOFT 92802 [facility] TISSUE 7 NECK RADIOLOGY RADIOLOGY W/CONTRAS ASSOCIAT ASSOCIAT T MATERIAL RADIOLOGI 40165 [facility] [place] RIVER[facility] C EXAM 7 RADIOLOGY CHEST 2 VIEWS FRONTAL&L ATERAL RADIOLOGI 26228 [facility] [place] [facility] C 7 RADIOLOGY EXAMINATI ON NECK SOFT TISSUE NEBULIZER E0570 [facility] CARLISLE WITH 7 SURGICAL SURGICAL COMPRESSO R ECG 84244 [facility] ROUTINE 7 MEDICAL ECG SERV W/LEAST FOUNDATIO 12 LDS N I&R ONLY CT SOFT 99595 [place] [facility] TISSUE 7 MEDICAL NECK SERV W/CONTRAS FOUNDATIO T N MATERIAL LARYNGOSC 27286 [facility] OPY 7 HEALTHCAR HEALTHCAR FLEXIBLE E E DIAGNOSTI [facility] G0463 [facility] OUTPATIEN 7 HEALTHCAR HEALTHCAR T CLIN E E VISIT [facility] [place] ASSESS & MGMT PT BEHAVIORA 19011 [facility] L & 7 HEALTHCAR HEALTHCAR QUALIT E E ANALYSIS [facility] [place] VOICE AND RESONANCE LARYNGOSC 72286 EAR, NOSE SHASHY OPY 7 AND FLEXIBLE THROAT DIAGNOSTI SPECIAL C COLLECTIO 58798 [facility] N VENOUS 7 [facility] BLOOD [facility] VENIPUNCT URE CREATININ 70835 [facility] E BLOOD 7 [facility] RADIOLOGI 31173 [facility] [place] SCALF C EXAM 7 RADIOLOGY CHEST 2 VIEWS FRONTAL&L ATERAL RADIOLOGI 59569 [facility] C EXAM 7 MEDICAL CHEST 2 IMAGING VIEWS ASS FRONTAL&L ATERAL HOSPITAL G0463 VIV NAM OUTPATIEN 7 MEM HOSP MEM HOSP T CLIN INC INC VISIT ASSESS & MGMT PT IAADIADOO 64406 VIV NAM 7 MEM HOSP MEM HOSP STREPTOCO INC INC CCUS GROUP A INJECTION J3420 [facility] ABERNATHY VIT B-12 7 CYANOCOBA BALDO TO 1000 MCG MOST 3044F [facility] RECENT 6 FAMILY FAMILY HEMOGLOBI CLINIC, CLINIC, N A1C PLL PLL LEVEL < 7.0% HEMOGLOBI 65879 [facility] N 6 DIAGNOSTI DIAGNOSTI GLYCOSYLA CS CS ANNALISE A1C INCORPORA INCORPORA T T SMOKE TOB G0436 [place] [address] FAMILY CESSATION CLINIC, CNSL PLL PT; INTRMED 3-10 MIN FACE--FAC G0447 [facility] E FAMILY BEHAVIORA CLINIC, L PLL COUNSELIN G OBESITY 15 MIN ANNUAL G0444 [facility] DEPRESSIO 6 FAMILY N CLINIC, SCREENING PLL 15 MINUTES COLLECTIO 27097 [facility] N VENOUS 6 DIAGNOSTI DIAGNOSTI BLOOD CS CS VENIPUNCT INCORPORA INCORPORA URE T T ANNUAL G0442 [facility] ALCOHOL 6 FAMILY MISUSE CLINIC, SCREENING PLL 15 MINUTES ELIG CLIN G8427 [facility] ATTSTS 6 FAMILY FAMILY DOC M REC CLINIC, CLINIC, OBTD PLL PLL UPD/REV PT MEDS ACUTE 90839 [facility] HEPATITIS 6 DIAGNOSTI DIAGNOSTI PANEL CS CS INCORPORA INCORPORA T T IADNA 12245 [facility] HEPATITIS 6 DIAGNOSTI DIAGNOSTI C [facility] & REVERSE TRANSCRIP TION ANNUAL G0439 [facility] 6 FAMILY VST; CLINIC, PERSONALI PLL ZED PPS SUBSQT VST ANNUAL G0446 [facility], BEHV TX PLL CV DZ IND 15 MIN AMB A0427 [facility] SERVICE 6 [facility] EMERGENCY EMS EMS TRANSPORT LEVEL 1 GROUND A0425 [facility] [place] 6 [facility] [place] [address] CNTRL HORACIO OLIVEIRA HEAD/BRAI 6 RADIOLOGY III GERALDINE N W/O CONTRAST MATERIAL COLLECTIO 02158 VIV Demarco VENOUS 5 [facility] BLOOD INC INC VENIPUNCT URE BLOOD 61192 VIV NAM COUNT 5 [facility] COMPLETE INC INC AUTO&AUTO DIFRNTL WBC COMPREHEN 18312 VIV NAM SIVE 5 [facility] METABOLIC INC INC PANEL FEDERALLY G0467 PATRICIA CO PATRICIA CO 5 [facility] VISIT ESTAB PT COMPREHEN 10617 VIV DAVIES 5 [facility] METABOLIC INC INC PANEL BLOOD 38538 VIV NAM COUNT 5 [facility] COMPLETE INC INC AUTO&AUTO DIFRNTL WBC COLLECTIO 56776 VIV Demarco VENOUS 5 [facility] BLOOD INC INC VENIPUNCT URE DRAINAGE 55998 [facility] 5 MEDICAL ELAINA ABSCESS SERV COMPLICAT FOUNDATIO ED N ANES 66097 [facility] 5 MEDICAL SHE EXTREMITI SERV ES ANT FOUNDATIO TRUNK & N PERINEUM NOS INITIAL 56192 [facility] 5 MEDICAL ELAINA CARE/DAY SERV 50 FOUNDATIO MINUTES N GROUND A0425 [facility] PER SERVICE SERVICE STATUTE [place] COMPREHEN 97552 VIV DAVIES 5 [facility] METABOLIC INC INC PANEL AMBULANCE A0428 [facility] SERVICE 5 AMBULANCE AMBULANCE BLS SERVICE SERVICE NONEMERGE NCY TRANSPORT THER 65911 VIV NAM PROPH/DX 5 [facility] NJX EA INC INC SEQL IV PUSH SBST/[place] [address] VIV NAM INFUSION 5 [facility] THERAPY/P INC INC ROPHYLAXI S /DX 1ST TO 1 HR THERAPEUT 94387 VIV NAM IC 5 [facility] INJECTION INC INC IV PUSH EACH NEW DRUG BLOOD 58574 VIV NAM COUNT 5 [facility] COMPLETE INC INC AUTO&AUTO DIFRNTL WBC CULTURE 74079 VIV NAM BACTERIAL 5 [facility] BLOOD INC [place]EROBIC W/[place] [address] VIV NAM INFUSION 5 [facility] THER INC INC PROPH ADDL SEQUENTIA L TO 1 HR INJECTION J2405 VIV VIV 5 [facility] [facility] ONDANSETR INC INC ON HCL PER 1 MG INJ J2543 VIV VIV PIPERACIL 5 [facility] L[facility]ISA INC INC SOD/TAZOB ACTAM SOD 1 G/0.125 [place] [address] VIV VIV LACTATE 5 [facility] INC INC RADEX 95222 VIV VIV HAND 5 [facility] MINIMUM 3 INC INC VIEWS COLLECTIO 24480 VIV NAM N VENOUS 5 [facility] BLOOD INC INC VENIPUNCT URE BLOOD 16924 VIVSELWYN NAM COUNT 5 [facility] COMPLETE INC INC AUTO&AUTO DIFRNTL WBC COMPREHEN 75363 VIVSELWYN NAM SIVE 5 [facility] METABOLIC INC INC PANEL FEDERALLY G0467 PATRICIA CO PATRICIA CO 5 [facility] CENTER VISIT ESTAB PT SBSQ 97836 [facility] 5 MEDICAL CARE/DAY SERV 25 FOUNDATIO MINUTES N SBSQ 24953 [facility] 5 MEDICAL CARE/DAY SERV 25 FOUNDATIO MINUTES N SBSQ 94963 [facility] 5 MEDICAL CARE/DAY SERV 25 FOUNDATIO MINUTES N SWALLOWIN 69825 [facility] FELICIAN[facility] FUNCJ 5 MEDICAL ART W/CINERAD SERV IOGRAPY/V FOUNDATIO IDRADIOG N INITIAL 46916 [facility] 5 MEDICAL KER RAN CARE/DAY SERV 50 FOUNDATIO MINUTES N SBSQ 88803 [facility] 5 MEDICAL CARE/DAY SERV 25 FOUNDATIO MINUTES N SBSQ 95889 [facility] 5 MEDICAL CARE/DAY SERV 25 FOUNDATIO MINUTES N INITIAL 71048 [facility] 5 MAGNUS A FRANCISCO J CARE/DAY PHYSICIAN 70 SERVI MINUTES MRI BRAIN 03452 [place] RASLAU BRAIN 5 MEDICAL FLA STEM W/O SERV CONTRAST FOUNDATIO MATERIAL N RADIOLOGI 50114 [place] LUKE CON C 5 MEDICAL EXAMINATI SERV ON CHEST FOUNDATIO SINGLE N VIEW FRONTAL RADIOLOGI 24014 [place] MARY BETH C 5 MEDICAL NIDA EXAMINATI SERV ON CHEST FOUNDATIO S[place] RADEX 31185 [place] FELICIANO ABDOMEN 1 5 MEDICAL ART SERV ANTEROPOS FOUNDATIO TERIOR N VIEW RADIOLOGI 41857 [place] SANABRIA C 5 MEDICAL NIDA EXAMINATI SERV ON CHEST FOUNDATIO SINGLE N [place]IEW FRONTAL SWALLOWIN 14574 [place] FREDA G FUNCJ 5 MEDICAL ADR W/CINERAD SERV IOGRAPY/V FOUNDATIO IDRADIOG N RADIOLOGI 25415 [place] CON C 5 MEDICAL EXAMINATI SERV ON [place] [address] [place] ANJEL SUBHASH HEAD/BRAI 5 MEDICAL N W/O SERV CONTRAST FOUNDATIO MATERIAL N ECG 79937 [place] SHANTELL IRA ROUTINE 5 MEDICAL ECG SERV W/LEAST FOUNDATIO 12 LDS N I&R ONLY RADIOLOGI 36094 [place] CON C 5 MEDICAL EXAMINATI SERV ON CHEST FOUNDATIO SINGLE N VIEW FRONTAL RADIOLOGI 23063 [place] CON C 5 MEDICAL EXAMINATI SERV ON CHEST FOUNDATIO SINGLE N VIEW FRONTAL RADIOLOGI 91563 [place] MARY BETH C 5 MEDICAL NIDA EXAMINATI SERV ON CHEST FOUNDATIO SINGLE N VIEW FRONTAL RADIOLOGI 05698 [place] LUKE CON C 5 MEDICAL EXAMINATI SERV ON CHEST FOUNDATIO SINGLE N VIEW FRONTAL RADIOLOGI 59744 [place] LU[place] CON C 5 MEDICAL EXAMINATI SERV ON CHEST FOUNDATIO SINGLE N VIEW FRONTAL RADIOLOGI 64351 [place] MARY BETH C 5 MEDICAL NIDA EXAMINATI SERV ON CHEST FOUNDATIO SINGLE N [place]IEW FRONTAL RADIOLOGI 27468 [place] RONN C 5 MEDICAL AYA MAR EXAMINATI SERV ON CHEST FOUNDATIO SINGLE N VIEW FRONTAL RADIOLOGI 40250 [place] DUTTA JUAN LUIS C 5 MEDICAL EXAMINATI SERV ON CHEST FOUNDATIO SINGLE N VIEW FRONTAL RADIOLOGI 57445 [place] DUTTA JUAN LUIS C 5 MEDICAL EXAMINATI SERV ON CHEST FOUNDATIO SINGLE N [place]IEW FRONTAL RADIOLOGI 67625 [place] EBONY VIOLETTE C 5 MEDICAL EXAMINATI SERV ON CHEST FOUNDATIO SING[place]ONT[place] RADEX 18953 [place] DISANTIS ABDOMEN 1 5 MEDICAL GLYNN SERV ANTEROPOS FOUNDATIO TERIOR N VIEW RADIOLOGI 75562 [place] CON C 5 MEDICAL EXAMINATI SERV ON CHEST FOUNDATIO SINGLE N VIEW FRONTAL INSERTION 3404 [facility] 5 Y Y INTERCOST [facility] AL CATHETER FOR DRAINAGE CRITICAL 37301 [place] [facility] CARE 5 MEDICAL Y-LÓPEZ ILL/INJUR SERV GALINDO ED FOUNDATIO PAT[place] INIT 30-[place] [address] [place] DELL CAR ABDOMINAL 5 MEDICAL REAL SERV TIME FOUNDATIO W/IMAGE N DOCUMENTA TION CYTP 88718 [place] MEJÍA SLCTV 5 MEDICAL LG CELL SERV ENHANCEME FOUNDATIO NT N INTERPJ XCPT C/V CONT 9671 [facility] INVASIVE [address] [facility] < 96 CONSECUTI VE HOURS INSERTION 9604 [facility] OF 5 Y Y [facility] CL[facility]ED 3324 [facility] BIOPSY OF 5 Y Y [facility] 3897 [facility] VENOUS 5 Y Y CATHETER [facility] PLACEMENT WITH GUIDANCE BLOOD 31058 [place] LINUS SMEAR 5 MEDICAL ROBBY PERIPHERA SERV L INTERP FOUNDATIO PHYS N W/WRIT REPORT RADIOLOGI 06548 [place] RONN C 5 MEDICAL AYA MAR EXAMINATI SERV ON CHEST FOUNDATIO SING[place] FRONTAL ECG 05538 H[facility]IO YOUNGO CHI ROUTINE 5 MEDICAL ECG SERV W/LEAST FOUNDATIO 12 LDS N I&R ONLY SPECIAL 76383 HORACIO MEJÍA STAIN 5 MEDICAL LG GROUP 1 SERV MICROORGA FOUNDATIO NISMS I&R N CT THORAX 05491 HORACIO BECK VIOLETTE W/O 5 MEDICAL CONTRAST SERV MATERIAL FOUNDATIO N RADIOLOGI 74187 [facility]IO LYON C 5 MEDICAL MARY EXAMINATI SERV ON CHEST FOUNDATIO SINGLE N [place]IEW FRONTAL INITIAL 01438 HORACIO [facility] 5 MEDICAL PAOLA CARE/DAY SERV 70 FOUNDATIO MINUTES N SMR PRIM 35040 [facility] SRC [address] [facility] NT&/AFS BCT FNGI PARASIT SMR PRIM 92206 [facility] SRC [address] GRAM/GIEM [facility] SA STAIN BCT FUNGI/VERONIKA L CUL BACT 55301 [facility] XCPT [address] [facility] BLOOD/STO OL AEROBIC ISOL CONCENTRA 16555 [facility] TION [address] [facility] S AGENTS BLOOD 25112 [facility] COUNT 5 DIAGNOSTI DIAGNOSTI COMPLETE CS CS AUTO&AUTO DIFRNTL WBC COLLECTIO 74323 [facility] N VENOUS 5 DIAGNOSTI DIAGNOSTI BLOOD CS CS VENIPUNCT URE RADIOLOGI 37927 [facility] EXAM 5 EIDER JANEEN CHEST 2 RADIOLOGY VIEWS ASSOCIAT FRONTAL&L ATERAL ANTIBODY 54280 [facility] HISTOPLAS 5 DIAGNOSTI DIAGNOSTI MA CS CS RADIOLOGI 09874 [facility] 5 EIDER JANEEN EXAMINATI RADIOLOGY ON CHEST ASSOCIAT [facility] 37622 [facility] DISCHARGE 5 MAGNUS KIN IGN DAY PHYSICIAN MANAGEMEN SERVI T 30 MIN/< SBSQ 53547 [place] [address] MAGNUS PETERSEN CARE/DAY PHYSICIAN DECALVO 25 SERVI MAR MINUTES INITIAL 43363 [place] [address] MAGNUS PETERSEN CARE/DAY PHYSICIAN DECALVO 70 SERVI MAR MINUTES RADIOLOGI 17217 [facility] Paredes 5 EIARITA EXAMINATI RADIOLOGY ON CHEST ASSOCIAT [place] FRONTAL ECG 18684 [facility] DEL ROUTINE 5 MAGNUS PETERSEN ECG PHYSICIAN DECALVO W/LEAST SERVI MAR 12 LDS [place] [address] VIV NAM HEPATITIS 5 [facility] B INC INC SURFACE ANTIGEN HEPATITIS 36971 VIV Connelly CORE 5 [facility] ANTIBODY INC INC HBCAB TOTAL HEPATITIS 04851 VIV Connelly SURF 5 [facility] ANTIBODY INC INC HBSAB HEPATITIS 36518 VIV NAM C 5 [facility] ANTIBODY INC INC HEPATITIS 16329 VIV NAM A 5 [facility] ANTIBODY INC INC HAAB COLLECTIO 23973 VIV NAM N VENOUS 5 [facility] BLOOD INC INC VENIPUNCT URE COLLECTIO 19936 VIV NAM N VENOUS 5 [facility] BLOOD INC INC VENIPUNCT URE CUL BACT 32980 VIV NAM AEROBIC 5 [facility] ADDL INC INC METHS DEFINITIV E EA ISOL CUL BACT 26830 VIV NAM XCPT 5 [facility] URINE INC INC BLOOD/STO OL AEROBIC ISOL SUSCEPTIB 62036 VIV NAM LTY STDY 5 [facility] ANTIMICRB INC INC IAL MICRO/AGA R DILUTJ INCISION 17835 VIV NAM & 5 [facility] DRAINAGE INC INC ABSCESS SIMPLE/SI NGLE BLOOD 61518 VIV NAM COUNT 5 [facility] COMPLETE INC INC AUTO&AUTO DIFRNTL WBC COMPREHEN 47791 VIV NAM SIVE 5 [facility] METABOLIC INC INC PANEL THERAPEUT 54443 DERMATOLO MUSIC SORAIDA IC 5 GY PROPHYLAC CONSULTAN TIC/DX TS PSC INJECTION SUBQ/IM OBSERVATI 99908 SARAY SO ON CARE 1 VIOLETTE VIOLETTE DISCHARGE MANAGEMEN T RADIOLOGI 27243 MAYSMANDO Paredes 1 HAYDEN VERNON EXAMINATI RADIOLOGY ON CHE[place] [address] MARITA KIRKLAND HEAD/BRAI 8 CO CO N W/O HOSPITAL HOSPITAL CONTRAST MATERIAL STRAPPING 59709 MARITA SO, THORAX 8 CO JOHN [facility] BLOOD 04843 MARITA KIRKLAND COUNT 8 CO CO [address]MEAR [facility] MCRSCP W/MNL DIFRNTL WBC COUNT RADEX 83786 MARITA KIRKLAND RIBS UNI 8 CO CO W/[facility] HOSPITAL ANT CH MINIMUM 3 VIEWS BLOOD 89326 MARITA KIRKLAND COUNT 8 CO CO COMPLETE [facility]OSPITAL AUTO&AUTO DIFRNTL WBC URNLS DIP 47954 MARITA KIRKLAND 8 CO CO STICK/TAB [facility] LET REAGENT AUTO MICROSCOP Y RADIOLOGI 27251 MARITA KIRKLAND C EXAM 8 CO CO CHEST 2 [facility]PITAL VIEWS FRONTAL&L ATERAL COLLECTIO 25589 MARITA KIRKLAND N VENOUS 8 CO CO BLOOD [facility] VENIPUNCT URE Encounters Encounter Start End Date Code Location Performer Type Date OFFICE 57921 [facility] 7 7 FAMILY T VISIT CLINIC, 15 PLL MINUTES HOSPITAL [place] [address] 7 [facility] [address] [facility] T VISIT MODERATE SEVERITY EMERGENCY 43344 [facility] 7 7 [facility] EMERGENC[facility] T VISIT PHYS HIGH/URGE NT SEVERITY [facility]PITAL [facility] [address] [facility] T OFFICE 98905 [facility] 7 7 FAMILY T VISIT CLINIC[facility] 15 PLL MINUTES [facility] 7 7 [facility] 56982 [facility] DEPT 7 7 MEDICAL VISIT SERV HIGH FOUNDATIO SEVERITY& N THREAT FUNC OFFICE 18094 [facility] 7 7 FAMILY T VISIT CLINIC, 15 PLL MINUTES [facility] 7 7 [facility] 37807 [facility] DEPT 7 7 MAGNUS VISIT EMERGENCY HIGH PHYS SEVERITY& THREAT FUNCJ OFFICE 54837 [facility] 7 7 FAMILY T VISIT CLINIC, 25 PLL MINUTES H[facility]ITAL [facility] 7 7 [facility] 33671 [facility] 7 7 FAMILY T VISIT CLINIC, 25 PLL MINUTES [facility]OSPITAL - 7 7 [facility] 90069 EAR, NOSE [facility] 7 7 AND T NEW 45 THROAT MINUTES [facility] 7 7 [facility] OFFICE 68772 [facility] 7 7 FAMILY T VISIT CLINIC, 25 PLL MINUTES EMERGENCY 08549 [facility] 7 7 MAGNUS DEPARTMEN EMERGENCY T VISIT PHYS HIGH/URGE NT SEVERITY EMERGENCY 21304 [facility] MAGNUS VISIT EMERGENCY HIGH PHYS SEVERITY& THREAT [facility] 19807 [facility] 7 7 FAMILY T VISIT CLINIC, 15 PLL MINUTES OFFICE 43309 JOSEMANUEL ABERNATHY OUTPATIEN 7 7 T VISIT 15 MINUTES OFFICE 45615 [facility] 7 7 FAMILY T VISIT CLINIC, 25 PLL MINUTES OFFICE 09698 [facility] 6 6 FAMILY TAU T VISIT CLINIC, 25 PLL MINUTES OFFICE 98921 [facility] 6 6 FAMILY TAU T VISIT CLINIC, 25 PLL MINUTES OFFICE 83347 [facility] ABERNATHY OUTPATIEN 6 6 JUAN LUIS JUAN LUIS T NEW [address] [facility] 6 6 MAGNUS DEPARTMEN EMERGENCY T VISIT SERVI MODERATE SEVERITY [facility] VIV - 5 5 [facility] OUTPATIEN [facility] OFFICE [address] OUTPATIEN 5 5 FAMILY T VISIT HEALTH 25 CTR MINUTES [facility] VIV - 5 5 [facility] OUTPATIEN [facility] EMERGENCY 63503 VIV DEPT 5 5 [facility] VISIT INC HIGH SEVERITY& THREAT [facility] - 5 5 [facility] OUTPATIEN [facility] VIV [facility] 5 5 [facility] OUTPATIEN [facility] OFFICE [address] OUTPATIEN 5 5 PRIMARY T VISIT CARE 15 [facility] UNIVERSIT - 5 5 Y INPATIENT HOSPITAL EMERGENCY 16531 [facility] DEPT 5 5 MEDICAL JR GERALDINE VISIT SERV HIGH FOUNDATIO SEVERITY& N THREAT [facility] OTHER 5 5 [facility] MORALES - 5 5 [facility] [address] INPATIENT HOSPITAL EMERGENCY 66966 [facility] DEPT 5 5 MAGNUS PHI VISIT EMERGENCY HIGH PHYS SEVERITY& THREAT [facility] OFFICE 03025 [facility]ER[facility] SORAIDA OUTPATIEN 5 5 GY T VISIT CONSULTAN 15 TS PSC MINUTES [facility] VIV - 5 5 [facility] OUTPATIEN [facility] OFFICE 96553 DERMATOLO МАРИНА OUTPATIEN 5 5 GY JEANNINE T VISIT CONSULTAN 25 TS PSC MINUTES [facility] VIV - 5 5 [facility] OUTPATIEN INC T EMERGENCY 42342 VIV 5 5 MEM [facility] T VISIT HIGH/URGE NT SEVERITY OFFICE 41125 DER[facility]OLO [facility] S[facility] OUTPATIEN 5 5 GY T NEW 20 CONSULTAN MINUTES TS PSC OFFICE 42431 [facility] 10095 MARITA SO 1 1 [facility] T VISIT HIGH/URGE NT SEVERITY EMERGENCY 98072 MARITA 8 8 [facility] T VISIT LOW/MODER SEVERITY CRITICAL MARITA ISLAS 8 8 [facility]
--- OUTSIDE RECORDS SUMMARY | 2017-09-16 15:14 | External Medical Summary Rpt | CCD ---
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 Unavailable Unavailable SERVICE, [facility] FRANK KIN IGN, Unavailable Unavailable [facility]ANK [facility] IGN CHESTNUT, CHESTNUT Unavailable Unavailable CALI, CALI Unavailable Unavailable [facility], Unavailable Unavailable [facility] Unavailable Unavailable CLINIC, PLL, [facility] SAM, SAM Unavailable Unavailable COOK, [...] Unavailable JACKELIN SHE, JACKELIN Unavailable Unavailable SHE [facility], Unavailable Unavailable [facility] Unavailable Unavailable HOSPITAL, [facility] GHALI, GHALI Unavailable Unavailable DUTTA JUAN LUIS, DUTTA JUAN LUIS Unavailable Unavailable [facility], [facility] Unavailable Unavailable [facility] HAGENSCHJAYLENIDER JANEEN, Unavailable Unavailable HAGCHCARLY JANEEN [facility] Un[facility] Un[facility], [facility] CATALINO, CATALINO Unavailable Unavailable LISETTE MASKEY, LISETTE Unavailable Unavailable MASKEY PILLO TAU, PILLO Unavailable Unavailable TAU ROXANNE III GERALDINE, Unavailable Unavailable ROXANNE III GERALDINE [facility] Unavailable Unavailable IM[facility]ING [facility], [facility] LINUS ROBBY, LINUS Unavailable [...] JOHN LUKE CON, LUKE CON Unavailable Unavailable [facility] Unavailable Unavailable [facility]OCIAT, [facility] CHAZ WARE Unavailable Unavailable [facility] Unavailable Unavailable [facility], [facility] HERNANDEZ-LÓPEZ GALINDO, Unavailable Unavailable HERNANDEZ-LÓPEZ GALINDO MUSIC SORAIDA, MUSIC SORAIDA Unavailable Unavailable ESTUARDO, ESTUARDO Unavailable Unavailable FERNANDEZ, FERNANDEZ Unavailable Unavailable [facility], Unavailable Unavailable [facility] DELVIS, DELVIS Unavailable Unavailable EBONY VIOLETTE, EBONY VIOLETTE Unavailable Unavailable [facility], Unavailable Unavailable PARAS[facility] Unavailable Unavailable EMS, [facility] Unavailable Unavailable EMS, [facility], [facility]available Unavailable [facility] [...] [facility] Un[facility] Unavailable PHYSICIAN SERVI, [facility] PHYSICIAN SERVI [facility] Unavailable Unavailable KETAN, [facility] K[facility]AN DEJESUS GALINDO, DEJESUS GALINDO Unavailable Unavailable МАРИНА JEANNINE, Unavailable Unavailable МАРИНА JEANNINE SWINEY, SWINEY Unavailable Unavailable SONALI MARY, SONALI Unavailable Unavailable MARY SORIA, SORIA Unavailable Unavailable DWYER, DWYER Unavailable Unavailable LES JAM, LES JAM Unavailable [facility]available [facility] Unavailable [facility]available [facility], [facility], Unavailable Unavailable [facility], WE[facility]S Unavailable Unavailable WELLS, WELLS [...] WITHOUT INC HEPATIC COMA B399 HISTOPLASMO 05-21-2017 [facility] UNSPECIFIED INC I10 ESSENTIAL 05-20-2017 [facility] N J449 CHRONIC 05-20-2017 [facility] PULMONARY [facility] DISEASE UNS K219 GASTRO-ESOP 05-20-2017 [facility] WITHOUT ESOPHAGITIS R070 PAIN IN 05-20-2017 [facility] THROAT N EMERGENCY PHYS R1310 DYSPHAGIA 05-20-2017 [facility] ASSOC[facility]AT Z880 ALLERGY 05-20-2017 [facility] Z885 ALLERGY 05-20-2017 [facility] AGENT STATUS R498 OTHER VOICE 05-13-2017 [facility] RESONANCE CLINIC, PLL DISORDERS Z6820 BODY MASS [...] SERV OPENINGS [facility] GASTROINTES T TRACT STATUS [id number] DECREASED 04-21-2017 [facility] BLOOD SERV CELL COUNT FOUNDATION UNSPECIFIED E440 MODERATE 04-21-2017 [place] [facility] PROTEIN-NANCI SERV ORIE [facility]OUNDATION MALNUTRITIO N E876 HYPOKALEMIA 04-21-2017 [facility] I358 OTHER 04-21-2017 [place] [facility] NONRHEUMATI SERV C AORTIC FOUNDATION VALVE DISORDERS R1313 DYSPHAGIA 04-21-2017 [facility] PHARYNGEAL SERV PHASE [facility] R499 UNSPECIFIED 04-21-2017 [place] [facility]ICE [facility] RESONANCE [facility] DISORDER R509 FEVER 04-21-2017 [place] [facility] UNSPECIFIED SERV [facility]OUNDATION [id number] FOOD IN 04-21-2017 [place] [facility] PHARYNX SERV [...] & PARASITIC DZ J069 ACUTE UPPER 04-10-2017 [facility] RESPIRATORY CLINIC, PLL INFECTION UNSPECIFIED D3709 NEOPLASM 04-08-2017 [facility] BHV OTH PRACTIC SPEC SITES ORAL CAV D380 NEOPLASM OF 04-08-2017 [facility] BEHAVIOR OF PRACTIC LARYNX H9201 OTALGIA 04-08-2017 [facility] RIGHT EAR [facility] J342 DEVIATED 04-08-2017 [facility] M1990 UNSPECIFIED 04-08-2017 [facility] TIS UNSPECIFIED SITE R12 HEARTBURN 04-08-2017 [facility] J0431 SUPRAGLOTTI 04-06-2017 [facility] TIS N EMERGENCY UNSPECIFIED PHYS WITH OBSTRUCTION R0600 DYSPNEA 04-06-2017 [facility]OC[facility] M542 CERVICALGIA 04-03-2017 [facility] R000 TACHYCARDIA 04-03-2017 [facility] FAMILY UNSPECIFIED CLINIC, PLL R030 ELEVATED 04-03-2017 [facility] BLOOD-PRESS FAMILY URE READING CLINIC, PLL WITHOUT DX HTN R05 COUGH 04-03-2017 [facility] KET[facility] J383 OTHER 03-04-2017 [facility] DISEASES OF FAMILY VOCAL CLINIC, PLL CORDS I444 LEFT 02-26-2017 [facility] FASCICULAR [facility] BLOCK R9431 ABNORMAL 02-26-2017 [facility] ELECTROCARD SERV IOGRAM FOUNDATION R490 DYSPHONIA 02-21-2017 [facility] B379 CANDIDIASIS 02-04-2017 [facility] FAMILY UNSPECIFIED CLINIC, PLL R221 LOCALIZED 02-04-2017 [facility] SWELLING FAMILY MASS AND CLINIC, PLL LUMP NECK B370 CANDIDAL 01-31-2017 [facility] STOMATITIS N EMERGENCY PHYS I959 HYPOTENSION 01-31-2017 [facility] N EMERGENCY UNSPECIFIED PHYS J9811 ATELECTASIS 01-27-2017 [facility] J040 ACUTE 01-06-2017 [facility] LARYNGITIS M150 PRIMARY 01-06-2017 [facility] GENERALIZED OSTEOARTHRI TIS R531 WEAKNESS 01-06-2017 [facility] L2089 OTHER 12-10-2016 [facility] ATOPIC FAMILY DERMATITIS CLINIC, PLL H6500 ACUTE 09-11-2016 [facility] SEROUS FAMILY OTITIS CLINIC, PLL MEDIA UNSPECIFIED EAR B1710 ACUTE 08-28-2016 [facility] HEPATITIS C FAMILY WITHOUT CLINIC, PLL HEPATIC COMA R7301 IMPAIRED 08-28-2016 [facility] FASTING [facility] GLUCOSE CLINIC, PLL R749 ABNORMAL 08-22-2016 [facility] [employer] LEVEL UNSPECIFIED R945 ABNORMAL 08-22-2016 [facility] FUNCTION STUDIES Z0000 ENCOUNTER 08-22-2016 [facility] GEN ADULT FAMILY MED EXAM CLINIC, PLL W/O ABNORMAL FIND G4700 INSOMNIA 08-08-2016 [facility] JUAN LUIS UNSPECIFIED G894 CHRONIC 08-08-2016 [facility] JUAN LU[facility] PAIN SYNDROME H6992 UNSPECIFIED 06-13-2016 [facility] EUSTACHIAN N EMERGENCY TUBE SERVI DISORDER LEFT EAR H9202 OTALGIA 06-13-2016 [facility] LEFT EAR N EMERGENCY SERVI R51 HEADACHE 05-11-2016 [facility] R569 UNSPECIFIED 05-11-2016 [facility] [id number] PAIN IN 10-13-2015 [place] [facility] M549 DORSALGIA 10-13-2015 [facility] [facility] K02584 PAIN IN 10-13-2015 [facility] [facility] I96 GANGRENE 10-02-2015 [facility] NOT SERV ELSEWHERE FOUNDATION CLASSIFIED R069 UNSPECIFIED 10-02-2015 [facility] ABNORMALITI FOUND[facility] ES OF BREATHING [id number] LACERATION 10-02-2015 [facility] W/O FB RT SERV THUMB W/O FOUNDATION DAMAGE NAIL INIT T71915 ACQUIRED 10-02-2015 [facility] ABSENCE OF SERV LEFT THUMB FOUNDATION M12000 CELLULITIS 10-01-2015 [place] [facility] OF LEFT SERV UPPER LIMB FOUNDATION L0390 CELLULITIS 10-01-2015 [facility] UNSPECIFIED [facility]BULANCE SERVICE Y69317 PAIN IN 10-01-2015 [facility] MEDICAL FINGERS IM[facility] ASS T38111C OPEN BITE 10-01-2015 [facility] MEDICAL THUMB W/O IMAGING ASS DAMAGE NAIL INITIAL 56660 ESOPHAGEAL 08-24-2015 [facility] 11785 INSOMNIA 08-24-2015 [facility] 7871 HEARTBURN 08-24-2015 [facility] 33134 UNSPECIFIED 08-17-2015 [facility] VIRAL [facility] HEPATITIS C FOUNDATION W/O HEPATIC COMA 95153 HISTOPLASMA 08-17-2015 [facility] CAPSULATUM SERV WITHOUT [facility]OUNDATION MENTION MANIFEST 7099 UNSPECIFIED 08-17-2015 [facility] DISORDER SERV OF [facility]OUNDATION SKIN&SUBCUT ANEOUS TISSUE 79511 DYSPHAGIA 08-17-2015 [facility] UNSPECIFIED SERV FOUNDATION 7904 NONSPEC 08-17-2015 [facility] ELEVATION SERV OF LEVELS FOUNDATION OF TRANSAMINAS E/LDH 63632 UNSPEC 08-14-2015 [place] [facility] HISTOPLASMO SERV SIS WITHOUT FOUNDATION MENTION MANIFEST 2639 UNSPECIFIED 08-14-2015 [facility] SERV PROTEIN-NANCI FOUNDATION ORIE MALNUTRITIO N 2768 HYPOPOTASSE 08-14-2015 [facility] AILYN SERV [facility]ATION 44892 ENCEPHALOPA 08-14-2015 [facility] THY, SERV UNSPECIFIED FOUNDATION 51477 OTHER 08-12-2015 [facility] [place]TERATION [place] [address] DYSPHAGIA 08-12-2015 [facility] OROPHARYNGE N PHYSICIAN AL PHASE SERVI 4371 OTH 08-11-2015 [facility] GENERALIZED SERV ISCHEMIC FOUNDATION CEREBROVASC ULAR DISEASE V1209 PERSONAL HX 08-11-2015 [facility] OTH [facility] INFECTIOUS& FOUNDATION PARASITIC DISEASE 49856 OTHER 08-10-2015 [place] [facility] PNEUMOTHORA SERV X FOUNDATION V5882 ENCOUNTER 08-10-2015 [facility] FITTING&ADJ SERV [facility] NON-VASCULA R CATHETER NEC 5119 UNSPECIFIED 08-08-2015 [facility] PLEURAL [facility] EFFUSION [facility]OUNDATION 9331 FOREIGN 08-08-2015 [facility] BODY IN SERV LARYNX FOUNDATION E915 FOREIGN 08-08-2015 [facility] ACCIDENTALL [facility]OUNDATION Y ENTERING OTHER ORIFICE 64874 OTHER 08-07-2015 [facility] ENCEPHALOPA SERV THY FOUNDATION 01568 NONSPECIFIC 08-07-2015 [facility] ABNORMAL SERV ELECTROCARD FOUNDATION IOGRAM 41023 SOLITARY 08-02-2015 [facility] PULMONARY SERV NODULE FOUNDATION 486 PNEUMONIA, 08-01-2015 [facility] ORGANISM SERV UNSPECIFIED FOUNDATION 49396 UNSPECIFIED 08-01-2015 [facility] SHOCK SERV [facility] 46377 MECH COMP 07-28-2015 [facility] DUE OTH SERV IMPLANT&INT FOUNDATION ERNAL DEVICE NEC 87209 PRIMARY 07-27-2015 [facility] SPONTANEOUS SERV FOUNDATION PNEUMOTHORA X 1124 CANDIDIASIS 07-26-2015 [facility] OF LUNG SERV FOUNDATION 2875 UNSPECIFIED 07-26-2015 [facility] THROMBOCYTO FOUNDATION PENIA 29683 LEUKOCYTOPE 07-26-2015 [facility] MILA SERV UNSPECIFIED FOUNDATION 87027 OTHER 07-26-2015 [facility] SPECIFIED SERV CARDIAC FOUNDATION DYSRHYTHMIA S 94881 CALCU 07-26-2015 [facility] GALLBLADD SERV W/O MENTION FOUNDATION CHOLECYST/O BST 81013 SEPSIS 07-26-2015 [facility] V5881 FITTING AND 07-26-2015 [facility] ADJUSTMENT SERV OF [facility]OUNDATION VASCULAR CATHETER 0389 UNSPECIFIED 07-25-2015 [facility] 1179 OTHER AND 07-25-2015 [facility] MYCOSES 08455 OTHER 07-25-2015 [facility] A 31094 ACUTE 07-25-2015 [facility] FAILURE 59464 OTHER 07-25-2015 [facility] DISEASES OF SERV LUNG NOT FOUNDATION ELSEWHERE CLASSIFIED 59439 FEVER 07-25-2015 [facility] UNSPECIFIED SERV FOUNDATION 09770 LOSS OF 07-25-2015 [facility] WEIGHT [facility] 26424 SEPTIC 07-25-2015 [facility] 7856 ENLARGEMENT 07-25-2015 [place] [facility] OF LYMPH SERV NODES FOUNDATION 7862 COUGH 07-25-2015 [facility] 81492 OTHER 07-25-2015 [facility] NONSPECIFIC SERV ABNORMAL FOUNDATION FINDING OF LUNG FIELD 89016 SEVERE 07-25-2015 [facility] SEPSIS SERV [facility]OUNDATION 6961 OTHER 07-12-2015 [facility] PSORIASIS N PHYSICIAN AND SIMILAR SERVI DISORDERS 96173 CHRONIC 07-10-2015 [facility] HEPATITIS C HOSPITAL WITHOUT MENTION HEPATIC COMA 06919 SHORTNESS 07-10-2015 [facility] 99238 WHEEZING 07-10-2015 [facility] N EMERGENCY PHYS 6929 [...] MEM HOSP USE OF INC OTHER MEDICATIONS 31557 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 [facility] VIOLETTE CHRONIC BRONCHITIS WITHOUT EXACERBAT 7821 RASH AND 03-08-2014 [facility] VIO[facility] OTHER NONSPECIFIC SKIN ERUPTION 19240 OTHER CHEST 08-01-2011 [facility] PAIN 9925 HEAT 08-01-2011 [facility] EXHAUSTION, UNSPECIFIED E8499 UNSPECIFIED 08-01-[address] OF OCCURRENCE E9000 ACCIDENT 08-01-2011 [facility] DUE EXCESSIVE HEAT WEATHER CONDITIONS 09005 DEHYDRATION 07-31-2011 [facility]PITAL 15529 PEPTC ULCR 07-31-2011 [facility] UNS HOSPITAL ACUT/CHRN W/O HEMOR PERF/OBST 7820 DISTURBANCE 07-31-2011 [facility] OF SKIN HOSPITAL SENSATION 16457 CHEST PAIN 07-31-2011 [facility]PECIFIED [facility]OLOGY ASSOCIAT 47355 ABDOMINAL 07-31-2011 [facility] PAIN, HOSPITAL EPIGASTRIC 3688 OTHER 08-02-2008 [facility] SPECIFIED HOSPITAL VISUAL DISTURBANCE S 5258 OTHER SPEC 08-02-2008 [facility] DISORDERS HOSPITAL TEETH&SUPPO RTING STRUCTURES 5259 UNSPECIFIED 08-02-2008 [facility] DISORDER HOSPITAL TEETH&SUPPO RTING STRUCTURES 8830 OPEN WOUND 08-02-2008 [facility] WITHOUT MENTION COMPLICATIO N 920 CONTUSION 08-02-2008 [facility] SCALP AND NECK EXCEPT EYE 9221 CONTUSION 08-02-2008 [facility] WALL Procedures Procedure DOS Code Location Performer Comment NEBULIZER E0570 [facility] CARLISLE WITH 7 SURGICAL SURGICAL COMPRESSO R NEBULIZER E0570 [facility] CARLISLE WITH 7 SURGICAL SURGICAL COMPRESSO R DRUG TEST 84533 [facility] PRSMV 7 FAMILY INSTRMNT CLINIC, CHEMISTRY PLL ANALYZERS NEBULIZER E0570 [facility] CARLISLE WITH 7 SURGICAL SURGICAL COMPRESSO R COMPREHEN 75095 VIV NAM SIVE 7 MEM HOSP [facility]OS[facility] METABOLIC INC INC PANEL ANTIBODY 23843 VIV NAM HISTOPLAS 7 MEM HOSP [facility]OS[facility] MA INC INC CULTURE 73267 VIV NAM FNGI 7 MEM HOSP [facility]OS[facility] MOLD/YEAS INC INC T PRSMPTV OTH XCPT BLOOD NFCT AGNT 68966 VIV NAM GENOTYP 7 MEM HOSP MEM HOS[facility] NUCLEIC INC INC ACID HEPATITIS C VIRUS BLOOD 85478 VIV NAM COUNT 7 MEM HOSP MEM HOSP COMPLETE INC INC AUTO&AUTO DIFRNTL WBC COLLECTIO 17655 VIV NAM N VENOUS 7 MEM HOSP MEM HOSP BLOOD INC INC VENIPUNCT URE COMPLEMEN 41816 VIV NAM T 7 MEM HOSP MEM HOSP FIXATION INC INC TESTS EACH ANTIGEN RADIOLOGI 43545 [facility] VIRAJ Paredes 7 EXAMINATI RADIOLOGY ON NECK ASSOCIAT SOFT TISSUE MOTION 38625 [facility] FLUOR 7 [facility] E E [facility] C/V REC SWALLOWIN 04750 [place] FERNA[facility]DE[facility] G FUNCJ 7 MEDICAL W/CINERAD SERV IOGRAPY/V FOUNDATIO IDRADIOG N NEBULIZER E0570 [facility] CARLISLE WITH 7 SURGICAL SURGICAL COMPRESSO R HOSPITAL 64452 [place] [facility] DISCHARGE 7 MEDICAL A DAY SERV MANAGEMEN FOUNDATIO T 30 N MIN/< SBSQ 04430 [place] [facility] 7 MEDICAL CARE/DAY SERV 25 FOUNDATIO MINUTES N RADEX 43983 [place] FERNA[facility] ABDOMEN 1 7 MEDICAL SERV ANTEROPOS FOUNDATIO TERIOR N VIEW ECHO 22376 [place] [facility] R-T 7 MEDICAL 2D SERV W/WOM-MOD FOUNDATIO E COMPL N SPEC&COLR D SBSQ 08863 [facility] 7 MEDICAL CARE/DAY SERV 25 FOUNDATIO MINUTES N SWALLOWIN 93087 [place] AYJAVIFormerly [facility] FUN 7 MEDICAL W/CINERAD SERV IOGRAPY/V FOUNDATIO IDRADIOG N SBSQ 12108 [facility] 7 MEDICAL CARE/DAY SERV 25 FOUNDATIO MINUTES N SBSQ 73062 [facility] 7 MEDICAL CARE/DAY SERV 25 FOUNDATIO MINUTES N SPECIAL 05642 [place] [address] MEDICAL PIECORO GROUP 1 SERV MICROORGA FOUNDATIO NISMS I&R N CYTP 77371 [place] [address] MEDICAL PIECORO TION SERV SMEARS & FOUNDATIO INTERPRET N ATION SPINAL 96004 [place] ALHAJERI PUNCTURE 7 MEDICAL LUMBAR SERV DIAGNOSTI FOUNDATIO C N FLUOR 72153 [place] ALHAJERI NEEDLE/CA 7 MEDICAL TH SERV SPINE/PAR FOUNDATIO ASPINAL N DX/THER ADDON SBSQ 49884 [facility] 7 MEDICAL A CARE/DAY SERV 35 FOUNDATIO MINUTES N SBSQ 02952 [facility] 7 MEDICAL CARE/DAY SERV 25 FOUNDATIO MINUTES N SBSQ 65091 [facility] 7 MEDICAL CARE/DAY SERV 25 FOUNDATIO MINUTES N SBSQ 12868 [facility] 7 MEDICAL A CARE/DAY SERV 35 FOUNDATIO MINUTES N EGD 52769 [facility] TRANSORAL 7 MEDICAL BIOPSY SERV SINGLE/[place] [address] [place] DWYER SURG 7 MEDICAL PATHOLOGY SERV FOUNDATIO GROSS&NIDA N ROSCOPIC EXAM INITIAL 43998 [facility] 7 MEDICAL CARE/DAY SERV 50 FOUNDATIO MINUTES N SBSQ 48004 [facility] 7 MEDICAL CARE/DAY SERV 25 FOUNDATIO MINUTES N INITIAL 76918 [facility] 7 MEDICAL CARE/DAY SERV 30 FOUNDATIO MINUTES N RADIOLOGI 52457 [facility] 7 MEDICAL CHEST 2 SERV VIEWS FOUNDATIO FRONTAL&L N ATERAL RADEX 46536 [place] FREDA ABDOMEN 1 7 MEDICAL SERV ANTEROPOS FOUNDATIO TERIOR N VIEW INITIAL 05530 [facility] 7 MEDICAL MASKEY CARE/DAY SERV 50 [place] [address] [facility] SURG [address] [place] [address] GROSS&NIDA ROSCOPIC EXAM EXC 73723 MEENA ARZOLARAD LESION 7 W PALATE PHYSICIAN UVULA W/O PRACTIC CLOSURE SPECIAL 79555 [facility] STAIN [address] [place] [address] HOSPITAL MICROORGA NISMS I&R LARYNGOSC 77514 MEENA SAM OPY 7 W W/BIOPSY PHYSICIAN MICROSCOP PRACTIC E/TELESCO PE LARYNGOSC 94846 [facility] [address] W/BIOPSY( IES) CT SOFT [address]20 [facility] TISSUE 7 NECK RADIOLOGY RADIOLOGY W/CONTRAS ASSOCIAT ASSOCIAT T MATERIAL RADIOLOGI 69695 [facility] [place]IVER[place] C EXAM 7 RADIOLOGY CHEST 2 VIEWS FRONTAL&L ATERAL RADIOLOGI 42578 [facility] [place] [facility] 7 RADIOLOGY EXAMINATI ON NECK SOFT TISSUE NEBULIZER E0570 [facility] CARLISLE WITH 7 SURGICAL SURGICAL COMPRESSO R ECG 26296 [facility] ROUTINE 7 MEDICAL ECG SERV W/LEAST FOUNDATIO 12 LDS N I&R ONLY CT SOFT 68555 [place] [facility] TISSUE 7 MEDICAL NECK SERV W/CONTRAS FOUNDATIO T N MATERIAL LARYNGOSC 80425 [facility] OPY 7 HEALTHCAR HEALTHCAR FLEXIBLE E E DIAGNOSTI [facility] G0463 [facility] OUTPATIEN 7 HEALTHCAR HEALTHCAR T CLIN E E VISIT [facility] ASSESS & MGMT PT BEHAVIORA 90747 [facility] L & 7 HEALTHCAR HEALTHCAR QUALIT E E ANALYSIS [facility] VOICE AND RESONANCE LARYNGOSC 66298 EAR, NOSE SHASHY OPY 7 AND FLEXIBLE THROAT DIAGNOSTI SPECIAL C COLLECTIO 26259 [facility] N VENOUS 7 [facility] BLOOD [facility] VENIPUNCT URE CREATININ 60298 [facility] E BLOOD 7 [facility] RADIOLOGI 09293 [facility] [place] SCALF C EXAM 7 RADIOLOGY CHEST 2 VIEWS FRONTAL&L ATERAL RADIOLOGI 74319 [facility] C EXAM 7 MEDICAL CHEST 2 IMAGING VIEWS ASS FRONTAL&L ATERAL HOSPITAL G0463 VIV NAM OUTPATIEN 7 MEM HOSP MEM HOSP T CLIN INC INC VISIT ASSESS & MGMT PT IAADIADOO 24887 VIV NAM 7 MEM HOSP MEM HOSP STREPTOCO INC INC CCUS GROUP A INJECTION J3420 JOSEMANUEL ABERNATHY VIT B-12 7 CYANOCOBA BALDO TO [address] [facility] RECENT 6 FAMILY FAMILY HEMOGLOBI CLINIC, CLINIC, N A1C PLL PLL LEVEL < 7.0% HEMOGLOBI 02079 [facility] N 6 DIAGNOSTI DIAGNOSTI GLYCOSYLA CS CS ANNALISE A1C INCORPORA INCORPORA T T SMOKE TOB G0436 [place] [address] FAMILY CESSATION CLINIC, CNSL PLL PT; INTRMED 3-10 MIN FACE--FAC G0447 [facility] E FAMILY BEHAVIORA CLINIC, L PLL COUNSELIN G OBESITY 15 MIN ANNUAL G0444 [facility] DEPRESSIO 6 FAMILY N CLINIC, SCREENING PLL 15 MINUTES COLLECTIO 15594 [facility] N VENOUS 6 DIAGNOSTI DIAGNOSTI BLOOD CS CS VENIPUNCT INCORPORA INCORPORA URE T T ANNUAL G0442 [facility] ALCOHOL 6 FAMILY MISUSE CLINIC, SCREENING PLL 15 [address] CLIN G8427 [facility] ATTSTS 6 FAMILY FAMILY DOC M REC CLINIC, CLINIC, OBTD PLL PLL UPD/REV PT MEDS ACUTE 87613 [facility] HEPATITIS 6 DIAGNOSTI DIAGNOSTI PANEL CS CS INCORPORA INCORPORA T T IADNA 32803 [facility] HEPATITIS 6 DIAGNOSTI DIAGNOSTI C QUANT CS LLC CS LLC & REVERSE TRANSCRIP TION ANNUAL G0439 [facility] 6 FAMILY VST; CLINIC, PERSONALI PLL ZED PPS SUBSQT VST ANNUAL G0446 [facility] FAMILY INTENSV CLINIC, BEHV TX PLL CV DZ IND 15 MIN AMB A0427 [facility] SERVICE 6 [facility] EMERGENCY EMS EMS TRANSPORT LEVEL 1 GROUND A0425 [facility] MILEAGE 6 [facility] [place] [address] [facility]AC[facility] OLIVEIRA HEAD/BRAI 6 RADIOLOGY III GERALDINE N W/O CONTRAST MATERIAL COLLECTIO 29569 VIV Demarco VENOUS 5 MEM [facility] BLOOD INC INC VENIPUNCT URE BLOOD 48543 VIV NAM COUNT 5 [facility] COMPLETE INC INC AUTO&AUTO DIFRNTL WBC COMPREHEN 62267 VIV NAM SIVE 5 [facility] METABOLIC INC INC PANEL FEDERALLY G0467 PATRICIA CO PATRICIA CO 5 [facility] VISIT ESTAB PT COMPREHEN 12323 VIV DAVIES 5 [facility] METABOLIC INC INC PANEL BLOOD 05621 VIV NAM COUNT 5 [facility] COMPLETE INC INC AUTO&AUTO DIFRNTL WBC COLLECTIO 42934 VIV Demarco VENOUS 5 [facility] BLOOD INC INC VENIPUNCT URE DRAINAGE 26270 [facility] 5 MEDICAL E[place] ABSCESS SERV COMPLICAT FOUNDATIO ED N ANES [id number] [facility] INTEG 5 MEDICAL SHE EXTREMITI SERV ES ANT FOUNDATIO TRUNK & N PERINEUM NOS INITIAL 87301 [facility] 5 MEDICAL E[place] CARE/DAY SERV 50 FOUNDATIO MINUTES N GROUND A0425 [facility] AM[facility]UL[facility] PER SERVICE SERVICE STATUTE [place] COMPREHEN 48793 VIV DAVIES 5 [facility] METABOLIC INC INC PANEL AMBULANCE A0428 [facility] SERVICE 5 AMBULANCE AMBULANCE BLS SERVICE SERVICE NONEMERGE NCY TRANSPORT THER 83181 VIV NAM PROPH/DX 5 [facility] NJX EA INC INC SEQL IV P[place] SBST/[place] [address] VIV NAM INFUSION 5 [facility] THERAPY/P INC INC ROPHYLAXI S /DX 1ST TO 1 HR THERAPEUT 64648 VIV NAM IC 5 [facility] INJECTION INC INC IV PUSH EACH NEW DRUG BLOOD 48035 VIV NAM COUNT 5 [facility] COMPLETE INC INC AUTO&AUTO DIFRNTL WBC CULTURE 63867 VIV NAM BACTERIAL 5 [facility] BLOOD INC [place] A[place]OB[place] W/[place] [address] VIV NAM INFUSION 5 [facility] THER INC INC PROPH ADDL SEQUENTIA L TO 1 HR INJECTION J2405 VIV VIV 5 [facility] ONDANSETR INC INC ON HCL PER 1 MG INJ J2543 VIV VIV PIPERACIL 5 [facility]ISA INC INC SOD/TAZOB ACTAM SOD 1 G/0.125 [place] [address] VIV VIV LACTATE 5 [facility] INC INC RADEX 79120 VIV VIV HAND 5 [facility] MINIMUM 3 INC INC VIEWS COLLECTIO 18264 VIV NAM N VENOUS 5 [facility] BLOOD INC INC VENIPUNCT URE BLOOD 38113 VIVSELWYN NAM COUNT 5 [facility] COMPLETE INC INC AUTO&AUTO DIFRNTL WBC COMPREHEN 88056 VIVSELWYN NAM SIVE 5 [facility] METABOLIC INC INC PANEL FEDERALLY G0467 PATRICIA CO PATRICIA CO [address] [facility] CENTER VISIT ESTAB PT SBSQ 44143 [facility] 5 MEDICAL CARE/DAY SERV 25 FOUNDATIO MINUTES N SBSQ 34421 [facility] 5 MEDICAL CARE/DAY SERV 25 FOUNDATIO MINUTES N SBSQ 75959 [facility] 5 MEDICAL CARE/DAY SERV 25 FOUNDATIO MINUTES N [place] [address] [place] FELICIANO FUNCJ 5 MEDICAL ART W/CINERAD SERV IOGRAPY/V FOUNDATIO IDRADIOG N INITIAL 69502 [facility] 5 MEDICAL KER RAN CARE/DAY SERV 50 FOUNDATIO MINUTES N SBSQ 13666 [facility] 5 MEDICAL CARE/DAY SERV 25 FOUNDATIO MINUTES N SBSQ 53054 [facility] 5 MEDICAL CARE/DAY SERV 25 FOUNDATIO MINUTES N INITIAL 38556 [facility] 5 MAGNUS A FRANCISCO J CARE/DAY PHYSICIAN 70 SERVI MINUTES MRI BRAIN 73423 [place] RASLAU BRAIN 5 MEDICAL FLA STEM W/O SERV CONTRAST FOUNDATIO MATERIAL N RADIOLOGI 70691 [place] LUKE CON C 5 MEDICAL EXAMINATI SERV ON CHEST FOUNDATIO SINGLE N VIEW FRONTAL RADIOLOGI 64330 [place] MARY BETH C 5 MEDICAL NIDA EXAMINATI SERV ON CHEST FOUNDATIO SINGLE N [place]IEW FRONTAL RADEX 31293 [place] FELICIANO ABDOMEN 1 5 MEDICAL ART SERV ANTEROPOS FOUNDATIO TERIOR N VIEW RADIOLOGI 68889 [place] SANABRIA C 5 MEDICAL NIDA EXAMINATI SERV ON CHEST FOUNDATIO SINGLE N VIEW FRONTAL SWALLOWIN 28319 [place] FREDA G FUNCJ 5 MEDICAL ADR W/CINERAD SERV IOGRAPY/V FOUNDATIO IDRADIOG N RADIOLOGI 58166 [place] CON C 5 MEDICAL EXAMINATI SERV ON [place] [address] [place] ANJEL SUBHASH HEAD/BRAI 5 MEDICAL N W/O SERV CONTRAST FOUNDATIO MATERIAL N ECG 30398 [place] SHANTELL IRA ROUTINE 5 MEDICAL ECG SERV W/LEAST FOUNDATIO 12 LDS N I&R ONLY RADIOLOGI 94453 [place] LU[place] CON C 5 MEDICAL EXAMINATI SERV ON CHEST FOUNDATIO SINGLE N VIEW FRONTAL RADIOLOGI 50447 [place] CON C 5 MEDICAL EXAMINATI SERV ON CHEST FOUNDATIO SINGLE N VIEW FRONTAL RADIOLOGI 34458 [place] MARY BETH C 5 MEDICAL NIDA EXAMINATI SERV ON CHEST FOUNDATIO SINGLE N VIEW FRONTAL RADIOLOGI 19436 [place] LUKE CON C 5 MEDICAL EXAMINATI SERV ON CHEST FOUNDATIO SINGLE N VIEW FRONTAL RADIOLOGI 46452 [place] CON C 5 MEDICAL EXAMINATI SERV ON CHEST FOUNDATIO SINGLE N VIEW FRONTAL RADIOLOGI 16125 [place] MARY BETH C 5 MEDICAL NIDA EXAMINATI SERV ON CHEST FOUNDATIO SINGLE N VIEW FRONTAL RADIOLOGI 45020 [place] RONN C 5 MEDICAL AYA MAR EXAMINATI SERV ON CHEST FOUNDATIO SINGLE N VIEW FRONTAL RADIOLOGI 71332 [place] DUTTA JUAN LUIS C 5 MEDICAL EXAMINATI SERV ON CHEST FOUNDATIO SINGLE N VIEW FRONTAL RADIOLOGI 16774 [place] DUTTA JUAN LUIS C 5 MEDICAL EXAMINATI SERV ON CHEST FOUNDATIO SINGLE N VIEW FRONTAL RADIOLOGI 45004 [place] EBONY VIOLETTE C 5 MEDICAL EXAMINATI SERV ON CHEST FOUNDATIO SINGLE N [place]IEW FRONTAL RADEX 97967 [place] DISANTIS ABDOMEN 1 5 MEDICAL GLYNN SERV ANTEROPOS FOUNDATIO TERIOR N VIEW RADIOLOGI 05052 [place] CON C 5 MEDICAL EXAMINATI SERV ON CHEST FOUNDATIO SINGLE N VIEW FRONTAL INSERTION 3404 [facility] 5 Y Y [facility] AL CATHETER FOR DRAINAGE CRITICAL 39375 [place] [facility] CARE 5 MEDICAL Y-LÓPEZ ILL/INJUR SERV GALINDO ED FOUNDATIO PATIENT N INIT 30-[place] [address] [place] DELL CAR ABDOMINAL 5 MEDICAL REAL SERV TIME FOUNDATIO W/IMAGE N DOCUMENTA TION CYTP 90984 [place] MEJÍA SLCTV 5 MEDICAL LG CELL SERV ENHANCEME FOUNDATIO NT N INTERPJ XCPT C/V CONT 9671 [facility] INVASIVE 5 Y Y [facility] < 96 CONSECUTI VE HOURS INSERTION 9604 [facility] OF 5 Y [facility]ED 3324 [facility] BIOPSY OF 5 Y Y [facility] 3897 [facility] VENOUS 5 Y Y [facility] PLACEMENT WITH GUIDANCE BLOOD 77514 [place] LINUS SMEAR 5 MEDICAL ROBBY PERIPHERA SERV L INTERP FOUNDATIO PHYS N W/WRIT REPORT RADIOLOGI 75207 [place] RONN C 5 MEDICAL AYA MAR EXAMINATI SERV ON CHEST FOUNDATIO SINGLE N VIEW FRONTAL ECG 65502 HORACIO YOUNGO CHI ROUTINE 5 MEDICAL ECG SERV W/LEAST FOUNDATIO 12 LDS N I&R ONLY SPECIAL 72782 HORACIO MEJÍA STAIN 5 MEDICAL LG GROUP 1 SERV MICROORGA FOUNDATIO NISMS I&R N CT THORAX 97084 HORACIO BECK VIOLETTE W/O 5 MEDICAL CONTRAST SERV MATERIAL FOUNDATIO N RADIOLOGI 21301 HORACIO LYON C 5 MEDICAL MARY EXAMINATI SERV ON CHEST FOUNDATIO SINGLE N VIEW FRONTAL INITIAL 28926 [facility] 5 MEDICAL PAOLA CARE/DAY SERV 70 FOUNDATIO MINUTES N SMR PRIM 33072 [facility] SRC 5 CO SD [facility] NT&/AFS BCT FNGI PARASIT SMR PRIM 01078 [facility] SRC 5 CO SD GRAM/[facility] SA STAIN BCT FUNGI/VERONIKA L CUL BACT 70114 [facility] XCPT 5 CO SD URINE [facility] SYSTEM BLOOD/STO OL AEROBIC ISOL CONCENTRA 87761 [facility] TION 5 CO SD INFECTIOU [facility]ALTH SYSTEM S AGENTS BLOOD 34018 [facility] COUNT 5 DIAGNOSTI DIAGNOSTI COMPLETE CS CS AUTO&AUTO DIFRNTL WBC COLLECTIO 62284 [facility] N VENOUS 5 DIAGNOSTI DIAGNOSTI BLOOD CS CS VENIPUNCT URE RADIOLOGI 92080 [facility] EXAM 5 EIDER JANEEN CHEST 2 RADIOLOGY VIEWS ASSOCIAT FRONTAL&L ATERAL ANTIBODY 94502 [facility] HISTOPLAS 5 DIAGNOSTI DIAGNOSTI MA CS CS RADIOLOGI 11860 [facility] 5 EIDER JANEEN EXAMINATI RADIOLOGY ON CHEST ASSOCIAT SINGLE [facility] 82526 [facility] DISCHARGE 5 MAGNUS KIN IGN DAY PHYSICIAN MANAGEMEN SERVI T 30 MIN/< SBSQ 25043 [place] [address] MAGNUS PETERSEN CARE/DAY PHYSICIAN DECALVO 25 SERVI MAR MINUTES INITIAL 28122 [place] [address] MAGNUS PETERSEN CARE/DAY PHYSICIAN DECALVO 70 SERVI MAR MINUTES RADIOLOGI 86981 STEPHAN FLORA Paredes 5 EIARITA EXAMINATI RADIOLOGY ON CHEST ASSOCIAT SINGLE VIEW FRONTAL ECG 63240 [facility] DEL ROUTINE 5 MAGNUS PETERSEN ECG PHYSICIAN DECALVO W/LEAST SERVI MAR 12 LDS [place] [address] VIV NAM HEPATITIS 5 [facility] B INC INC SURFACE ANTIGEN HEPATITIS 07624 VIV Connelly CORE 5 [facility] ANTIBODY INC INC HBCAB TOTAL HEPATITIS 01113 VIV Connelly SURF 5 [facility] ANTIBODY INC INC HBSAB HEPATITIS 96920 VIV NAM C 5 [facility] ANTIBODY INC INC HEPATITIS 48925 VIV NAM A 5 [facility] ANTIBODY INC INC HAAB COLLECTIO 63311 VIV NAM N VENOUS 5 [facility] BLOOD INC INC VENIPUNCT URE COLLECTIO 43760 VIV NAM N VENOUS 5 [facility] BLOOD INC INC VENIPUNCT URE CUL BACT 94948 VIV NAM AEROBIC 5 [facility] ADDL INC INC METHS DEFINITIV E EA ISOL CUL BACT 39334 VIV NAM XCPT 5 [facility] URINE INC INC BLOOD/STO OL AEROBIC ISOL SUSCEPTIB 46498 VIV NAM LTY STDY 5 [facility] ANTIMICRB INC INC IAL MICRO/AGA R DILUTJ INCISION 18389 VIV NAM & 5 [facility] DRAINAGE INC INC ABSCESS SIMPLE/SI NGLE BLOOD 69787 VIV NAM COUNT 5 [facility] COMPLETE INC INC AUTO&AUTO DIFRNTL WBC COMPREHEN 77175 VIV NAM SIVE 5 MEM H[facility] METABOLIC INC INC PANEL THERAPEUT 05122 DERMATOLO MUSIC SORAIDA IC 5 GY PROPHYLAC CONSULTAN TIC/DX TS PSC INJECTION SUBQ/IM OBSERVATI 99703 SARAY SO ON CARE 1 VIOLETTE VIOLETTE DISCHARGE MANAGEMEN T RADIOLOGI 26520 MAYSMANDO Paredes 1 HAYDEN VERNON EXAMINATI RADIOLOGY ON [place] [address] MARITA KIRKLAND HEAD/BRAI 8 CO CO N W/O HOSPITAL HOSPITAL CONTRAST MATERIAL STRAPPING 24976 MARITA SO, THORAX 8 CO [facility] BLOOD 15319 MARITA K[place] COUNT 8 CO CO [facility] MCRSCP W/MNL DIFRNTL WBC COUNT RADEX 62449 MARITA KIRKL[place] RIBS UNI 8 CO CO W/[facility] HOSPITAL ANT CH MINIMUM 3 VIEWS BLOOD 38237 MARITA [place] COUNT 8 CO CO COMPLETE [facility]ITAL AUTO&AUTO DIFRNTL WBC URNLS DIP 57249 MARITA KIRKLAND 8 CO CO STICK/TAB [facility] LET REAGENT AUTO MICROSCOP Y RADIOLOGI 93003 MARITA KIRKL[place] C EXAM 8 CO CO CHEST 2 [facility] VIEWS FRONTAL&L ATERAL COLLECTIO 13746 MARITA KIRKLAND N VENOUS 8 CO CO BLOOD HEALTH SYSTEM VENIPUNCT URE Encounters Encounter Start End Date Code Location Performer Type Date OFFICE 38816 [facility] AUXIER [facility] 7 7 FAMILY T VISIT CLINIC, 15 PLL MINUTES HOSPITAL [place] [address] 7 [facility] [address] H[facility] T VISIT MODERATE SEVERITY EMERGENCY 70625 [facility] 7 7 [facility] EMERGENCY T VISIT PHYS HIGH/URGE NT SEVERITY HOSPITAL [facility] 7 7 [facility] T OFFICE 57348 [facility] FAGBEMI [facility] 7 7 FAMILY T VISIT CLINIC, 15 PLL MINUTES HOSPITAL [facility] 7 7 [facility] 80152 [facility]ON[facility] DEPT 7 7 MEDICAL VISIT SERV HIGH FOUNDATIO SEVERITY& N THREAT FUNC OFFICE 56454 [facility] 7 7 FAMILY T VISIT CLINIC, 15 PLL MINUTES HOSPITAL [place] - 7 7 [facility] EMERGENCY 17313 [facility] DEPT 7 7 MAGNUS VISIT EMERGENCY HIGH PHYS SEVERITY& THREAT FUNCJ OFFICE 73227 [facility] 7 7 FAMILY T VISIT CLINIC, 25 PLL MINUTES HOSPITAL [facility] - 7 7 [facility] 10931 [facility] 7 7 FAMILY T VISIT CLINIC, 25 PLL MINUTES HOSPITAL - 7 7 [facility] 82069 EAR, NOSE SHASHY [facility] 7 7 AND T NEW 45 THROAT MINUTES [facility] 7 7 [facility] OFFICE 89575 [facility] BALDEV [facility] 7 7 FAMILY T VISIT CLINIC, 25 PLL MINUTES EMERGENCY 62962 [facility] 7 7 MAGNUS DEPARTMEN EMERGENCY T VISIT PHYS HIGH/URGE NT SEVERITY EMERGENCY 82114 [facility] 7 7 MAGNUS VISIT EMERGENCY HIGH PHYS SEVERITY& THREAT [facility] - 7 7 [facility] 13076 [facility] BALDEV OUTPATIEN 7 7 FAMILY T VISIT CLINIC, 15 PLL MINUTES OFFICE 87069 JOSEMANUEL ABERNATHY OUTPATIEN 7 7 T VISIT 15 MINUTES OFFICE 47637 [facility] BALDEV OUTPATIEN 7 7 FAMILY T VISIT CLINIC, 25 PLL MINUTES OFFICE 49184 [facility] PILLO OUTPATIEN 6 6 FAMILY TAU T VISIT CLINIC, 25 PLL MINUTES OFFICE 20136 [facility] PILLO OUTPATIEN 6 6 FAMILY TAU T VISIT CLINIC, 25 PLL MINUTES OFFICE 03049 JOSEMANUEL ABERNATHY OUTPATIEN 6 6 JUAN LUIS JUAN LUIS T NEW 30 MINUTES EMERGENCY 38389 [facility] 6 6 MAGNUS DEPARTMEN EMERGENCY T VISIT SERVI MODERATE SEVERITY [facility] VIV - 5 5 [facility] OUTPATIEN [facility] OFFICE 45285 PATRICIA SD OUTPATIEN 5 5 FAMILY T VISIT HEALTH 25 CTR MINUTES [facility] VIV - 5 5 MEM HOSP OUTPATIEN [facility] EMERGENCY 32167 VIV DEPT 5 5 MEM HOSP VISIT INC HIGH SEVERITY& THREAT [facility] VIV - 5 5 [facility] OUTPATIEN [facility] - 5 5 [facility] OUTPATIEN [facility] OFFICE 29327 PATRICIA SD OUTPATIEN 5 5 PRIMARY T VISIT CARE 15 CENTER [facility] - 5 5 Y INPATIENT HOSPITAL EMERGENCY [address]59 [place] [facility] DEPT 5 5 MEDICAL JR GERALDINE VISIT SERV HIGH FOUNDATIO SEVERITY& N THREAT [facility] [place] - OTHER 5 5 [facility] - 5 5 [facility] [place] - 5 5 SD INPATIENT [facility]OSPITAL EMERGENCY 137[address] [facility] DEPT 5 5 MAGNUS PHI VISIT EMERGENCY HIGH PHYS SEVERITY& THREAT [facility] OFFICE 90897 [facility] OUTPATIEN 5 5 GY T VISIT CONSULTAN 15 TS PSC MINUTES [facility] VIV - 5 5 MEM HOSP OUTPATIEN [facility] OFFICE 64826 DERMATOLO МАРИНА OUTPATIEN 5 5 GY JEANNINE T VISIT CONSULTAN 25 TS PSC MINUTES [facility] VIV - 5 5 [facility] OUTPATIEN INC T EMERGENCY 30461 VIV 5 5 [facility] T VISIT HIGH/URGE NT SEVERITY OFFICE 10879 [facility]ER[facility]OLO [facility] SORAIDA OUTPATIEN 5 5 GY T NEW 20 CONSULTAN MINUTES TS PSC OFFICE 24633 [facility]AY SO [facility] 25 [facility]ES EMERGENCY 76774 MARITA SO 1 1 [facility] T VISIT HIGH/URGE NT SEVERITY EMERGENCY 16043 MARITA 8 8 [facility] T VISIT LOW/MODER SEVERITY CRITICAL MARITA ISLAS 8 8 [facility]
--- OUTSIDE RECORDS SUMMARY | 2017-09-16 15:15 | External Medical Summary Rpt | CCD ---
Author Author , MADDI LINDA Address Unknown Phone [email or web address]imodi Immunization Name Date Rout CVX Reac Dose Comm Prov Is Faci e tion ent ider Refu lity Give sed n Tdap 11-0 115 0.5 Hist [facility] No [facility] , 1-20 mL oric 1 1 Adso 15 al rbed Info rmat ion - Sour ce Unsp ecif ied
--- OUTSIDE RECORDS SUMMARY | 2017-09-16 15:15 | External Medical Summary Rpt | CCD ---
Author Author , MADDI LINDA Address Unknown Phone [email or web address] Immunization Name Date Rout CVX Reac Dose Comm Prov Is Faci e tion ent ider Refu lity Give sed n Tdap 11-0 115 0.5 Hist [facility] No [facility] , 1-20 mL oric 1 1 Adso 15 al rbed Info rmat ion - Sour ce Unsp ecif ied
--- NOTE | 2017-09-16 15:28 | RADIOLOGY REPORT PS360 ---
[id number] VIEWS HISTORY: Pain with difficulty moving R/O FX ORDERING PHYSICIAN: Asif Underwood MD PATIENT AGE: 51 years COMPARISON: None FINDINGS: No obvious fracture or dislocation. No lytic or blastic change. There are mild osteoarthritic changes of the acromioclavicular joint. There is mild subacromial stenosis. IMPRESSION: 1. No acute fracture. 2. 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
[2017-09-16] MEDS ORDERED: NORCO 325 MG-51 TAB PO (15:34)
--- NOTE | 2017-09-16 15:56 | RADIOLOGY REPORT PS360 ---
HAND-RT 3 VIEWS HISTORY: Pain following injury R/O FX ORDERING PHYSICIAN: Asif Underwood MD PATIENT AGE: 51 years COMPARISON: None FINDINGS: There is mild bowing of the distal aspect of the fifth metacarpal toward the radius and ulna and may be related to an old fracture. Please correlate clinically. If pain persists, consider follow-up study in 7-10 days. There are no previous exams available for comparison. No other significant anomalies are evident. IMPRESSION: Bowing of the distal aspect of the fifth metacarpal which may be due to old fracture, correlate clinically. If there is focal pain in this region then, an acute fracture cannot excluded.
[2017-09-16 16:10] VITALS: BP 138/95
== END 2017-09-16 16:10 | disposition home or self-care (01) ==
LOC: ER 14:45
DX: S60.221A Contusion of right hand, initial encounter (principal); S40.012A Contusion of left shoulder, initial encounter; S66.911A Strain of unspecified muscle, fascia and tendon at wrist and hand level, right hand, initial encounter; S16.1XXA Strain of muscle, fascia and tendon at neck level, initial encounter; S46.912A Strain of unspecified muscle, fascia and tendon at shoulder and upper arm level, left arm, initial encounter; S00.83XA Contusion of other part of head, initial encounter; W14.XXXA Fall from tree, initial encounter; Y93.39 Activity, other involving climbing, rappelling and jumping off; Y92.9 Unspecified place or not applicable; F17.210 Nicotine dependence, cigarettes, uncomplicated; Z22.322 Carrier or suspected carrier of Methicillin resistant Staphylococcus aureus; K75.9 Inflammatory liver disease, unspecified; Z79.899 Other long term (current) drug therapy